=== PATIENT | female | born 1995 | race Caucasian/White ===

== ENCOUNTER 2018-06-28 00:33 | Emergency (ER) | payer BC ==
--- NOTE | 2018-06-28 02:10 | EDPHYS ---
Physician Documentation [facility] Name: Devi Porter Age: 22 yrs Sex: Female : 1995 Arrival Date: 06/28/2018 Time: 00:34 Bed 14 Private MD: Bird Green ED Physician Dameon Gonzales HPI: 06/28 01:16 This 22 yrs old Female presents to ER via Ambulatory with complaints of Chest jr8 Pain, Cough. 01:16 The patient or guardian reports cough, that is intermittent, described as mild, with no jr8 sputum. Onset: The symptoms/episode began/occurred gradually, 2 day(s) ago. Severity of symptoms: At their worst the symptoms were moderate, in the emergency department the symptoms are unchanged. Modifying factors: The symptoms are alleviated by nothing, the symptoms are aggravated by nothing. Associated signs and symptoms: Pertinent positives: chest pain, sore throat. The patient has not experienced similar symptoms in the past. The patient has not recently seen a physician. 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 - Social history:: Smoking status: Patient/guardian denies using tobacco. - Ebola Screening: : Patient denies exposure to infectious person Patient denies travel to an Ebola-affected area in the 21 days before illness onset. ROS: 01:16 Eyes: Negative for injury, pain, redness, and discharge, Neck: Negative for injury, jr8 pain, and swelling, Abdomen/GI: Negative for abdominal pain, nausea, vomiting, diarrhea, and constipation, Back: Negative for injury and pain, MS/Extremity: Negative for injury and deformity, Skin: Negative for injury, rash, and discoloration, Neuro: Negative for headache, weakness, numbness, tingling, and seizure. 01:16 ENT: Positive for sore throat, Negative for drainage from ear(s), ear pain, tinnitus, nasal discharge, rhinorrhea, sinus congestion, sinus pain, difficulty swallowing, difficulty handling secretions, hoarseness. 01:16 Cardiovascular: Positive for chest pain, Negative for edema, orthopnea, palpitations, paroxysmal nocturnal dyspnea. 01:16 Respiratory: Positive for cough, with no reported sputum, Negative for dyspnea on exertion, hemoptysis, shortness of breath, sputum production, wheezing. Exam: 02:09 Eyes: Pupils equal round and reactive to light, extra-ocular motions intact. Lids and jr8 lashes normal. Conjunctiva and sclera are non-icteric and not injected. Cornea within normal limits. Periorbital areas with no swelling, redness, or edema. ENT: Nares patent. No nasal discharge, no septal abnormalities noted. Tympanic membranes are normal and external auditory canals are clear. Oropharynx with no redness, swelling, or masses, exudates, or evidence of obstruction, uvula midline. Mucous membranes moist. Neck: Trachea midline, no thyromegaly or masses palpated, and no cervical lymphadenopathy. Supple, full range of motion without nuchal rigidity, or vertebral point tenderness. No Meningismus. Cardiovascular: Regular rate and rhythm with a normal S1 and S2. No gallops, murmurs, or rubs. Normal PMI, no JVD. No pulse deficits. Respiratory: Lungs have equal breath sounds bilaterally, clear to auscultation and percussion. No rales, rhonchi or wheezes noted. No increased work of breathing, no retractions or nasal flaring. Abdomen/GI: Soft, non-tender, with normal bowel sounds. No distension or tympany. No guarding or rebound. No evidence of tenderness throughout. Back: No spinal tenderness. No costovertebral tenderness. Full range of motion. Skin: Warm, dry with normal turgor. Normal color with no rashes, no lesions, and no evidence of cellulitis. MS/ Extremity: Pulses equal, no cyanosis. Neurovascular intact. Full, normal range of motion. Neuro: Awake and alert, GCS 15, oriented to person, place, time, and situation. Cranial nerves II-XII grossly intact. Motor strength 5/5 in all extremities. Sensory grossly intact. Cerebellar exam normal. Normal gait. Vital Signs: 01:02 BP 115 / 78; Pulse 91; Resp 18; Temp 98.7(O); Pulse Ox 100% on R/A; Weight 129.27 kg; aa1 Height 5 ft. 5 in. (165.10 cm); Pain 6/10; :44 BP 125 / 86; Pulse 83; Resp 18; Pulse Ox 98% on R/A; aa1 02:15 BP 128 / 70; Pulse 74; Resp 18; Temp 98(O); Pulse Ox 98% on R/A; Pain 0/10; aa1 01:02 Body Mass Index 47.43 (129.27 kg, 165.10 cm) 1 MDM: 00:43 Patient medically screened. 8 02:09 Data reviewed: vital signs, nurses notes, EKG, radiologic studies, plain films, and as jr8 a result, I will discharge patient. Data interpreted: Pulse oximetry: on room air is 98 %. Interpretation: normal. Counseling: I had a detailed discussion with the patient and/or guardian regarding: the historical points, exam findings, and any diagnostic results supporting the discharge/admit diagnosis, radiology results, the need for outpatient follow up, a family practitioner, to return to the emergency department if symptoms worsen or persist or if there are any questions or concerns that arise at home. 06/28 01:43 Order name: Urine Dipstick--Ancillary (enter results) [facility] 06/28 01:45 Order name: Urine --Ancillary (enter results) [facility] 06/28 01:13 Order name: EKG - Nurse/Tech; Complete Time: 01:42 [facility] 06/28 01:13 Order name: XRAY Chest Pa And Lat (2 Views) [facility] 06/28 01:13 Order name: Urine Test (obtain specimen); Complete Time: 01:42 [facility] 06/28 01:45 Order name: Urine --Ancillary [facility] 06/28 01:13 Order name: Urine Dipstick-Ancillary (obtain specimen); Complete Time: 01:42 [facility] Administered Medications: No medications were administered Disposition: 20:33 Co-signature as Attending Physician, Dameon Gonzales MD I agree with the assessment and wa plan of care. Disposition: 06/28/18 02:10 Discharged to Home. Impression: Acute upper respiratory infection, unspecified, Chest pain on breathing. - Condition is Stable. - Discharge Instructions: Upper Respiratory Infection, Adult. - Prescriptions for Prednisone 20 mg Oral Tablet - take 1 tablet by ORAL route once daily for 5 days; 5 tablet. Tessalon Perles 100 mg Oral Capsule - take 1 capsule by ORAL route every 8 hours As needed; 15 capsule. Guaifenesin AC 10- 100 mg/5 mL Oral Liquid - take 10 milliliter by ORAL route every 4 hours As needed; 240 milliliter. - Medication Reconciliation Form, Thank You Letter, Antibiotic Education, Prescription Opioid Use form. - Follow up: Bird Green MD; When: 5 - 6 days; Reason: Recheck today's complaints, Continuance of care, Re-evaluation by your physician. - Problem is new. - Symptoms have improved. Signatures: Dispatcher [employer] EDMS Marion Milligan RN RN aa1 Ponce Romero PA PA jr8 Dameon Gonzales MD MD wa Corrections: (The following items were deleted from the chart) 02:30 02:10 06/28/2018 02:10 Discharged to Home. Impression: Acute upper respiratory aa1 infection, unspecified; Chest pain on breathing. Condition is Stable. Forms are Medication Reconciliation Form, Thank You Letter, Antibiotic Education, Prescription Opioid Use. Follow up: Bird Green; When: 5 - 6 days; Reason: Recheck today's complaints, Continuance of care, Re-evaluation by your physician. Problem is new. Symptoms have improved. jr8
--- NOTE | 2018-06-28 02:10 | ER ---
Nurse's Notes [facility] Name: Devi Porter Age: 22 yrs Sex: Female : 1995 Arrival Date: 06/28/2018 Time: 00:34 Bed 14 Private MD: Bird Green Diagnosis: Acute upper respiratory infection, unspecified;Chest pain on breathing Presentation: 06/28 00:59 Presenting complaint: Patient states: dry cough x 2 days and began to have tightness in aa1 her chest this evening. Denies fever. Transition of care: patient was not received from another setting of care. Onset of symptoms was June 26, 2018. Risk Assessment: Do you want to hurt yourself or someone else? Patient reports no desire to harm self or others. Initial Sepsis Screen: Does the patient meet any 2 criteria? No. Patient's initial sepsis screen is negative. Does the patient have a suspected source of infection? No. Patient's initial sepsis screen is negative. Care prior to arrival: None. 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 - Social history:: Smoking status: Patient/guardian denies using tobacco. - Ebola Screening: : Patient denies exposure to infectious person Patient denies travel to an Ebola-affected area in the 21 days before illness onset. Screenin:04 Abuse screen: Denies threats or abuse. Denies injuries from another. Nutritional aa1 screening: No deficits noted. Tuberculosis screening: No symptoms or risk factors identified. Fall Risk None identified. Assessment: 01:04 Reassessment:. General: Appears in no apparent distress. comfortable, Behavior is calm, aa1 cooperative, appropriate for age. Pain: Complains of pain in chest Pain does not radiate. Pain currently is 6 out of 10 on a pain scale. Quality of pain is described as pressure, Is continuous. Neuro: Level of Consciousness is awake, alert, obeys commands, Oriented to person, place, time, situation, Moves all extremities. Full function Gait is steady, Speech is normal. Cardiovascular: Heart tones S1 S2 present Rhythm is regular. Respiratory: Reports cough that is dry, Airway is patent Respiratory effort is even, unlabored, Respiratory pattern is regular, symmetrical, Breath sounds are clear bilaterally. GI: No signs and/or symptoms were reported involving the gastrointestinal system. : No signs and/or symptoms were reported regarding the genitourinary system. EENT: No signs and/or symptoms were reported regarding the EENT system. Derm: Skin is intact, is healthy with good turgor, Skin is pink, warm \T\ dry. Musculoskeletal: Circulation, motion, and sensation intact. Capillary refill < 3 seconds. 01:44 Reassessment: Patient appears in no apparent distress at this time. Patient and/or aa1 family updated on plan of care and expected duration. Pain level reassessed. Patient is alert, oriented x 3, equal unlabored respirations, skin warm/dry/pink. Awaiting xray. 02:20 Reassessment: Patient and/or family updated on plan of care and expected duration. Pain aa1 level reassessed. Patient is alert, oriented x 3, equal unlabored respirations, skin warm/dry/pink. Discharge instructions given to patient, verbalized the understanding of instruction. Vital Signs: 01:02 BP 115 / 78; Pulse 91; Resp 18; Temp 98.7(O); Pulse Ox 100% on R/A; Weight 129.27 kg; aa1 Height 5 ft. 5 in. (165.10 cm); Pain 6/10; 01:44 BP 125 / 86; Pulse 83; Resp 18; Pulse Ox 98% on R/A; aa1 02:15 BP 128 / 70; Pulse 74; Resp 18; Temp 98(O); Pulse Ox 98% on R/A; Pain 0/10; aa1 01:02 Body Mass Index 47.43 (129.27 kg, 165.10 cm) aa1 ED Course: 00:34 Patient arrived in ED. ds1 00:34 Bird Green MD is Private Physician. ds1 00:43 Ponce Romero [facility]. jr8 00:43 Dameon Gonzales MD is Attending Physician. jr8 00:53 Mineral, Marion, RN is Primary Nurse. aa1 01:00 Triage completed. aa1 01:02 Arm band placed on right wrist. Patient placed in an exam room, on a stretcher. aa1 01:04 Patient has correct armband on for positive identification. Bed in low position. Call aa1 light in reach. Pulse ox on. NIBP on. 01:04 Patient maintains SpO2 saturation greater than 95% on room air. aa1 01:52 Patient moved to radiology via wheelchair. kw 01:52 X-ray completed. Patient tolerated procedure well. kw 01:52 Patient moved back from radiology. kw 01:53 XRAY Chest Pa And Lat (2 Views) In Process Unspecified. EDMS 02:10 Bird Green MD is Referral Physician. jr8 02:20 Patient did not have IV access during this emergency room visit. aa1 02:27 No provider procedures requiring assistance completed. aa1 Administered Medications: No medications were administered Outcome: 02:10 Discharge ordered by MD. jr8 02:27 Discharged to home ambulatory, with family. aa1 02:27 Condition: improved 02:27 Discharge instructions given to patient, family, Instructed on discharge instructions, follow up and referral plans. medication usage, Demonstrated understanding of instructions, follow-up care, medications, Prescriptions given X 3. 02:30 Patient left the ED. aa1 Signatures: Dispatcher [employer] EDIN Marion Milligan RN RN aa1 Elvira Vila ds1 Nancy Johnson Josh, PA PA jr8
[2018-06-28 02:42] VITALS: O2SAT 98
[2018-06-28 02:44] VITALS: BP 128/70; TEMP 98
[2018-06-28 03:15] LABS: Urine Blood NEGATIVE (NEG); Urine Glucose NEGATIVE (NEG); Urine Protein NEGATIVE (NEG)
--- NOTE | 2018-06-28 08:55 | RAD REPORT ---
EXAM DESCRIPTION: RAD - Chest Pa And Lat (2 Views) - 06/28/2018 1:57 am CLINICAL HISTORY: COUGH Chest pain. COMPARISON: No comparisons FINDINGS: Mild prominence of the interstitial markings noted which could indicate interstitial pneum onitis or reactive airway disease. No focal consolidation typical of bacterial pneumonia is seen. The heart is normal in size. No displaced fractures.
--- NOTE | 2018-06-28 14:48 | EKG ---
Test Date: 2018-06-28 Test Time: 01:22:52 Erp Consultant: ALEJANDRA MEASUREMENT RESULTS: Intervals: Rate: 80 ME: 164 QRSD: 80 QT: 378 QTc: 435 [place]: P: 19 ME: 164 QRS: 4 T: 19 INTERPRETIVE STATEMENTS: Normal sinus rhythm Normal ECG Compared to ECG 02/04/1999 20:03:00 No significant changes Electronically Signed On 06-28-18 14:45:21 CDT by Obdulio Mcbride
== END 2018-06-28 02:30 | disposition home or self-care (01) ==
LOC: ER 00:33
DX: J06.9 Acute upper respiratory infection, unspecified (principal); R07.1 Chest pain on breathing
CPT/HCPCS: 71046; 81003; 81025; 93005; 99284

== ENCOUNTER 2018-07-21 13:33 | Emergency (ER) | payer BC ==
--- NOTE | 2018-07-21 14:22 | EDPHYS ---
Physician Documentation [facility] Name: Devi Porter Age: 22 yrs Sex: Female : 1995 Arrival Date: 07/21/2018 Time: 13:36 Bed 12 Private MD: ED Physician Dameon Gonzales HPI: 07/21 13:47 This 22 yrs old Female presents to ER via Unassigned with complaints of Ear kav Pain. 14:14 The patient presents with a fullness. The complaints affect the right ear. Onset: The kav symptoms/episode began/occurred acutely, 2 day(s) ago. Modifying factors: The symptoms are alleviated by covering ear, the symptoms are aggravated by "...putting q-tips in ear". Associated signs and symptoms: The patient has no apparent associated signs or symptoms. Severity of symptoms: At their worst the symptoms were moderate just prior to arrival. The patient has not experienced similar symptoms in the past. The patient has not recently seen a physician. Patient reports that she also has a rash on her abdomen around periumbilical area.. Historical: - Allergies: 14:05 No Known Allergies; iw - Home Meds: 14:05 None [Active]; iw - PMHx: 14:05 None; iw - PSHx: 14:04 None; iw - Immunization history:: Adult Immunizations up to date. - Social history:: Smoking status: Patient/guardian denies using tobacco. - Ebola Screening: : Patient negative for fever greater than or equal to 101.5 degrees Fahrenheit, and additional compatible Ebola Virus Disease symptoms Patient denies exposure to infectious person Patient denies travel to an Ebola-affected area in the 21 days before illness onset No symptoms or risks identified at this time. - Family history:: not pertinent. - Hospitalizations: : No recent hospitalization is reported. ROS: 14:16 Constitutional: Negative for fever, chills, and weight loss, Eyes: Negative for injury, kav pain, redness, and discharge, Neck: Negative for injury, pain, and swelling, Cardiovascular: Negative for chest pain, palpitations, and edema, Respiratory: Negative for shortness of breath, cough, wheezing, and pleuritic chest pain, Abdomen/GI: Negative for abdominal pain, nausea, vomiting, diarrhea, and constipation, Back: Negative for injury and pain, : Negative for injury, bleeding, discharge, and swelling, MS/Extremity: Negative for injury and deformity, Neuro: Negative for headache, weakness, numbness, tingling, and seizure, Psych: Negative for depression, anxiety, suicide ideation, homicidal ideation, and hallucinations, Allergy/Immunology: Negative for hives, rash, and allergies, Endocrine: Negative for neck swelling, polydipsia, polyuria, polyphagia, and marked weight changes, Hematologic/Lymphatic: Negative for swollen nodes, abnormal bleeding, and unusual bruising. 14:16 ENT: Positive for ear pain, of the right ear, Negative for sinus congestion. 14:16 Skin: Positive for rash. Exam: 14:16 Constitutional: This is a well developed, well nourished patient who is awake, alert, kav and in no acute distress. Head/Face: Normocephalic, atraumatic. Eyes: Pupils equal round and reactive to light, extra-ocular motions intact. Lids and lashes normal. Conjunctiva and sclera are non-icteric and not injected. Cornea within normal limits. Periorbital areas with no swelling, redness, or edema. Neck: Trachea midline, no thyromegaly or masses palpated, and no cervical lymphadenopathy. Supple, full range of motion without nuchal rigidity, or vertebral point tenderness. No Meningismus. Chest/axilla: Normal chest wall appearance and motion. Nontender with no deformity. No lesions are appreciated. Cardiovascular: Regular rate and rhythm with a normal S1 and S2. No gallops, murmurs, or rubs. Normal PMI, no JVD. No pulse deficits. Respiratory: Lungs have equal breath sounds bilaterally, clear to auscultation and percussion. No rales, rhonchi or wheezes noted. No increased work of breathing, no retractions or nasal flaring. Abdomen/GI: Soft, non-tender, with normal bowel sounds. No distension or tympany. No guarding or rebound. No evidence of tenderness throughout. Back: No spinal tenderness. No costovertebral tenderness. Full range of motion. MS/ Extremity: Pulses equal, no cyanosis. Neurovascular intact. Full, normal range of motion. Neuro: Awake and alert, GCS 15, oriented to person, place, time, and situation. Cranial nerves II-XII grossly intact. Motor strength 5/5 in all extremities. Sensory grossly intact. Cerebellar exam normal. Normal gait. Psych: Awake, alert, with orientation to person, place and time. Behavior, mood, and affect are within normal limits. 14:16 ENT: External ear(s): are unremarkable, no acute changes, Ear canal(s): TM's: erythema, that is moderate, on the right, Examination of the other ear shows no obvious abnormality, Nose: is normal, no acute changes, Examination of the other nostril shows no obvious abnormality. 14:16 Skin: ringworm, on the umbilical area. Vital Signs: 14:20 BP 134 / 85; Pulse 74; Resp 16; Temp 98.2; Pulse Ox 98% on R/A; Pain 5/10; iw MDM: 13:47 Medical screening is not applicable. kav 14:16 Data reviewed: vital signs, nurses notes. kav Administered Medications: No medications were administered Disposition: 07/21/18 14:22 Discharged to Home. Impression: Left Ear Pain, Rash and other nonspecific skin eruption. - Condition is Stable. - Discharge Instructions: Earache, Adult, Rash, Body Ringworm. - Prescriptions for Ciprodex 0.3- 0.1 % Otic Drops, Suspension - instill 4 drop by OTIC route every 12 hours for 7 days , for ears ONLY; 1 Container. - Medication Reconciliation Form, Thank You Letter, Antibiotic Education, Prescription Opioid Use form. - Follow up: Private Physician; When: 2 - 3 days; Reason: Recheck today's complaints, Continuance of care, Re-evaluation by your physician. - Problem is new. - Symptoms have improved. Addendum: 07/23/2018 08:07 Co-signature as Attending Physician, Dameon Gonzales MD I agree with the assessment and w a plan of care. Signatures: Reta Pearson, SIGNS CLEANER SIGNS CLEANER Evi Harrison RN RN iw Appiah, William, MD MD fl Corrections: (The following items were deleted from the chart) 07/21 14:40 14:22 07/21/2018 14:22 Discharged to Home. Impression: Left Ear Pain; Rash and other iw nonspecific skin eruption. Condition is Stable. Forms are Medication Reconciliation Form, Thank You Letter, Antibiotic Education, Prescription Opioid Use. Follow up: Private Physician; When: 2 - 3 days; Reason: Recheck today's complaints, Continuance of care, Re-evaluation by your physician. Problem is new. Symptoms have improved. vivek
--- NOTE | 2018-07-21 14:22 | ER ---
Nurse's Notes [facility] Name: Devi Porter Age: 22 yrs Sex: Female : 1995 Arrival Date: 07/21/2018 Time: 13:36 Bed 12 Private MD: Diagnosis: Left Ear Pain;Rash and other nonspecific skin eruption Presentation: 07/21 14:04 Presenting complaint: Patient states: Well a couple days ago my left ear was bothering iw me, now my right ear is hurting too, i also have a sore throat. Transition of care: patient was not received from another setting of care. Onset of symptoms was July 21, 2018. Risk Assessment: Do you want to hurt yourself or someone else? Patient reports no desire to harm self or others. Initial Sepsis Screen: Does the patient meet any 2 criteria? No. Patient's initial sepsis screen is negative. Does the patient have a suspected source of infection? No. Patient's initial sepsis screen is negative. Care prior to arrival: None. 14:04 Acuity: NATHAN 5 iw 14:04 Method Of Arrival: Ambulatory iw Triage Assessment: 14:30 General: Appears in no apparent distress. iw 14:30 General: Behavior is calm, cooperative. iw Historical: - Allergies: 14:05 No Known Allergies; iw - Home Meds: 14:05 None [Active]; iw - PMHx: 14:05 None; iw - PSHx: 14:04 None; iw - Immunization history:: Adult Immunizations up to date. - Social history:: Smoking status: Patient/guardian denies using tobacco. - Ebola Screening: : Patient negative for fever greater than or equal to 101.5 degrees Fahrenheit, and additional compatible Ebola Virus Disease symptoms Patient denies exposure to infectious person Patient denies travel to an Ebola-affected area in the 21 days before illness onset No symptoms or risks identified at this time. - Family history:: not pertinent. - Hospitalizations: : No recent hospitalization is reported. Screenin:35 Abuse screen: Denies threats or abuse. Denies injuries from another. Nutritional iw screening: No deficits noted. Tuberculosis screening: No symptoms or risk factors identified. Fall Risk None identified. Assessment: 14:30 General: Appears in no apparent distress. Behavior is calm, cooperative. Pain: iw Complains of pain in abdomen and umbilical area and right ear. Neuro: Level of Consciousness is awake, alert, obeys commands, Oriented to person, place, time, situation, Moves all extremities. Full function. Cardiovascular: Patient's skin is warm and dry. Respiratory: Respiratory effort is even, unlabored, Respiratory pattern is regular, symmetrical. EENT: Reports pain in right ear and left ear. Derm: Skin is intact. Musculoskeletal: Range of motion: intact in all extremities. Vital Signs: 14:20 BP 134 / 85; Pulse 74; Resp 16; Temp 98.2; Pulse Ox 98% on R/A; Pain 5/10; iw ED Course: 13:36 Patient arrived in ED. rg4 13:46 [facility] Pearson [facility]NP [facility]. kav 13:46 Dameon Gonzales MD is Attending Physician. kav 14:03 Evi Merritt, RN is Primary Nurse. iw 14:04 Triage completed. iw 14:05 Arm band placed on. iw 14:30 Patient has correct armband on for positive identification. iw 14:30 No provider procedures requiring assistance completed. Patient did not have IV access iw during this emergency room visit. Administered Medications: No medications were administered Outcome: 14:22 Discharge ordered by . kav 14:39 Discharged to home ambulatory, with family. iw 14:39 Condition: good 14:39 Discharge instructions given to patient, family, Instructed on discharge instructions, follow up and referral plans. medication usage, Demonstrated understanding of instructions, follow-up care, medications, Prescriptions given X 1. 14:40 Patient left the ED. iw Signatures: Reta Pearson FNP FNP kav Williams, Irene, RN Linda Padilla rg4
[2018-07-21 14:44] VITALS: BP 134/85; TEMP 98.2; O2SAT 98
== END 2018-07-21 14:40 | disposition home or self-care (01) ==
LOC: ER 13:33
DX: R21 Rash and other nonspecific skin eruption (principal)
CPT/HCPCS: 99282

== ENCOUNTER 2019-08-07 07:14 | Emergency (ER) | payer BC ==
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
--- OUTSIDE RECORDS SUMMARY | 2019-08-07 07:17 | XMS REPORT | Summary of Care ---
:1995 Author Organization [facility] Address [address] [place] [address] Care Team Providers Name Role Phone Sierra Edmond [facility] Primary Care Provider Reason for Visit Reason Comments NEXPLANON Insert Encounter Details Date Type Department Care Team Description 07/11/2019 Office Visit [facility]- Sierra Edmond, Nexplanon in place (Primary Dx); [facility] of family member [address] [facility] [address] [place] [address] [phone] Allergies No Known Allergiesdocumented as of this [...] Morbid obesity 06/19/2013 Overview: ICD10 Diagnosis Term President [employer] Utility documented as of this encounter (statuses [...] in this encounter Progress Notes Sierra Edmond, PRISON GUARD - 07/11/2019 8:15 AM CDT Chief complaint: [...] file Gets together: Not on file Attends zoroastrianism service: Not on file Active member of [...] OB Satellites Sierra Edmond FNP [address] [place] [address] [phone] Health Maintenance Due Date Last Done Comments [...] Effective Dates Phone Address Type / Group [facility] [id number] 2018-Tiffany [phone] [address] PPO/POS [place] - OUT OF t 7 [id number] [place] [address] documented as of this encounter Advance Directives Name Relationship Healthcare Agent Relationship Communication Katrina Porter Grandparent Primary healthcare agent
--- OUTSIDE RECORDS SUMMARY | 2019-08-07 07:17 | XMS REPORT | Summary of Care ---
:1995 Author Organization [facility] Address [address] [place] [address] Care Team Providers Name Role Phone Mariann Rubin 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 documented as of this encounter (statuses [...] of this encounter Last Filed Vital Signs Not on filedocumented in this encounter Plan of Treatment Date Type Specialty Care Team Description 07/11/2019 Office Visit [facility]ell[facility] Sierra Edmond, VUL[employer] CREWMEMBER [address] [place], [place] [id number] Health Maintenance Due Date Last Done Comments [...] this topic documented as of this encounter Procedures Procedure Name Priority Date/Time Associated Diagnosis Comments ASSIGNMENT OF BENEFITS Routine 07/11/2019 8:00 AM CDT ASSIGNMENT OF BENEFITS Routine 07/11/2019 8:00 AM CDT documented in this encounter Results Not on filedocumented in this encounter Insurance Payer Benefit Plan Subscriber ID Effective Dates Phone Address Type / Group [facility] [id number] 2018-Tiffany [phone] [address] PPO/POS [place] - OUT OF 7 [id number] [place] [address] documented as of this encounter Advance Directives Name Relationship Healthcare Agent Relationship Communication Katrina Porter Grandparent Primary healthcare agent
--- OUTSIDE RECORDS SUMMARY | 2019-08-07 07:17 | XMS REPORT ---
:1995 [facility] Address [address] [place] [address] Care Team Providers Name Role Phone Unavailable Unavailable Unavailable Problems This patient has no known problems. Allergies, Adverse Reactions, Alerts This patient has no known allergies or adverse reactions. Medications This patient has no known medications.
--- NOTE | 2019-08-07 08:13 | EDPHYS ---
Physician Documentation [facility] Name: Devi Porter Age: 23 yrs Sex: Female : 1995 Arrival Date: 08/07/2019 Time: 07:19 Bed 18 Private MD: Bird Green ED Physician Jama Cruz HPI: 08/07 07:28 This 23 yrs old Female presents to ER via Unassigned with complaints of rn Vaginal Pain. 07:28 The patient presents with perineal itching. Onset: The symptoms/episode began/occurred rn 2 day(s) ago. Modifying factors: The symptoms are alleviated by nothing, the symptoms are aggravated by movement, pressure, urinating. Severity of symptoms: At their worst the symptoms were moderate, in the emergency department the symptoms are unchanged. The patient has not experienced similar symptoms in the past. The patient has not recently seen a physician. Reports vaginal pain and itching, began 2 days ago, no fever, no trauma, reports began with itching and now has worsened to hurt when urinating and walking/sitting. . Historical: - Allergies: 07:35 No Known Allergies; ss - Home Meds: 07:35 None [Active]; ss - PMHx: 07:35 None; ss - PSHx: 07:35 None; ss - Immunization history:: Adult Immunizations up to date. - Social history:: Smoking status: Patient/guardian denies using tobacco. - Family history:: not pertinent. - Ebola Screening: : Patient denies exposure to infectious person Patient denies travel to an Ebola-affected area in the 21 days before illness onset. - Hospitalizations: : No recent hospitalization is reported. ROS: 07:31 Constitutional: Negative for fever, chills, and weight loss, Eyes: Negative for injury, rn pain, redness, and discharge, Cardiovascular: Negative for chest pain, palpitations, and edema, Respiratory: Negative for shortness of breath, cough, wheezing, and pleuritic chest pain, Abdomen/GI: Negative for abdominal pain, nausea, vomiting, diarrhea, and constipation, : Negative for injury, swelling MS/Extremity: Negative for injury and deformity, Skin: Negative for injury, rash, and discoloration, Neuro: Negative for headache, weakness, numbness, tingling, and seizure. Exam: 07:31 Constitutional: This is a well developed, well nourished patient who is awake, alert, rn and in no acute distress. Abdomen/GI: soft, non-tender, no rebound Pelvic Exam: + inflamed and erythematous vaginal mucosa and labia without thick discharge, no foul odor. NO signs of trauma. No abscess or fluctuance. Skin: Warm, dry with normal turgor. Normal color with no rashes, no lesions, and no evidence of cellulitis. Vital Signs: 07:35 BP 124 / 89; Pulse 80; Resp 16; Temp 98.3(TE); Pulse Ox 98% on R/A; Weight 131.54 kg; ss Height 5 ft. 5 in. (165.10 cm); Pain 8/10; 07:35 Body Mass Index 48.26 (131.54 kg, 165.10 cm) ss MDM: 07:20 Patient medically screened. rn 08:11 Differential diagnosis: urinary tract infection, vaginosis, vaginitis. Data reviewed: rn vital signs, nurses notes. 08:12 Counseling: I had a detailed discussion with the patient and/or guardian regarding: the rn historical points, exam findings, and any diagnostic results supporting the discharge/admit diagnosis, lab results, the need for outpatient follow up, to return to the emergency department if symptoms worsen or persist or if there are any questions or concerns that arise at home. Special discussion: I discussed with the patient/guardian in detail that at this point there is no indication for admission to the hospital. It is understood, however, that if the symptoms persist or worsen the patient needs to return immediately for re-evaluation. 08/07 07:50 Order name: Urine Dipstick--Ancillary (enter results); Complete Time: 08:23 bd 08/07 07:50 Order name: Urine --Ancillary (enter results); Complete Time: 08:23 bd 08/07 07:31 Order name: Urine Dipstick-Ancillary (obtain specimen); Complete Time: 07:49 rn 08/07 07:31 Order name: Urine Test (obtain specimen); Complete Time: 07:49 rn Administered Medications: 07:45 CANCELLED (will wait on preg test): DiFLUcan 150 mg PO once rn 08:28 Drug: DiFLUcan 200 mg Route: PO; ss 08:28 Follow up: Response: Medication administered at discharge. ss Disposition: 08/07/19 08:12 Discharged to Home. Impression: Vaginitis, vulvitis and vulvovaginitis in diseases classified elsewhere. - Condition is Stable. - Discharge Instructions: Vaginitis. - Prescriptions for Flagyl 500 mg Oral Tablet - take 1 tablet by ORAL route every 12 hours for 7 days; 14 tablet. Miconazole 7 2 % Vaginal Cream - insert 1 applicatorful by VAGINAL route At bedtime for 7 days; 45 gram. - Medication Reconciliation Form, Thank You Letter, Antibiotic Education, Prescription Opioid Use form. - Follow up: Private Physician; When: 2 - 3 days; Reason: Recheck today's complaints, Re-evaluation by your physician. - Problem is new. - Symptoms are unchanged. Signatures: Dispatcher [employer] EDMS Jama Cruz MD MD rn Smirch, Shelby, RN RN ss Corrections: (The following items were deleted from the chart) 07:41 07:31 Constitutional: This is a well developed, well nourished patient who is awake, rn alert, and in no acute distress. Abdomen/GI: soft, non-tender, no rebound Pelvic Exam: + inflamed and erythematous vaginal mucosa without thick discharge, no foul odor. NO signs of trauma. Skin: Warm, dry with normal turgor. Normal color with no rashes, no lesions, and no evidence of cellulitis. rn 07:45 07:45 DiFLUcan 150 mg PO once ordered. awais rn 08:28 08:12 08/07/2019 08:12 Discharged to Home. Impression: Vaginitis, vulvitis and ss vulvovaginitis in diseases classified elsewhere. Condition is Stable. Discharge Instructions: Vaginitis. Prescriptions for Flagyl 500 mg Oral Tablet - take 1 tablet by ORAL route every 12 hours for 7 days; 14 tablet, Miconazole 7 2 % Vaginal Cream - insert 1 applicatorful by VAGINAL route At bedtime for 7 days; 45 gram. and Forms are Medication Reconciliation Form, Thank You Letter, Antibiotic Education, Prescription Opioid Use. Follow up: Private Physician; When: 2 - 3 days; Reason: Recheck today's complaints, Re-evaluation by your physician. Problem is new. Symptoms are unchanged. rn
--- NOTE | 2019-08-07 08:13 | ER ---
Nurse's Notes [facility] Name: Devi Porter Age: 23 yrs Sex: Female : 1995 Arrival Date: 08/07/2019 Time: 07:19 Bed 18 Private MD: Bird Green Diagnosis: Vaginitis, vulvitis and vulvovaginitis in diseases classified elsewhere Presentation: 08/07 07:19 Presenting complaint: Patient states: vaginal itching x 3 days. Patient is concerned ss because she believes she may have scratched herself because it conde when she voids x 1 day. Transition of care: patient was not received from another setting of care. Onset of symptoms was August 04, 2019. Risk Assessment: Do you want to hurt yourself or someone else? Patient reports no desire to harm self or others. Initial Sepsis Screen: Does the patient meet any 2 criteria? No. Patient's initial sepsis screen is negative. Does the patient have a suspected source of infection? No. Patient's initial sepsis screen is negative. Care prior to arrival: None. 07:19 Method Of Arrival: Ambulatory ss 07:19 Acuity: NATHAN 4 ss Historical: - Allergies: 07:35 No Known Allergies; ss - Home Meds: 07:35 None [Active]; ss - PMHx: 07:35 None; ss - PSHx: 07:35 None; ss - Immunization history:: Adult Immunizations up to date. - Social history:: Smoking status: Patient/guardian denies using tobacco. - Family history:: not pertinent. - Ebola Screening: : Patient denies exposure to infectious person Patient denies travel to an Ebola-affected area in the 21 days before illness onset. - Hospitalizations: : No recent hospitalization is reported. Screenin:40 Abuse screen: Denies threats or abuse. Denies injuries from another. Nutritional ss screening: No deficits noted. Tuberculosis screening: Never had TB. Fall Risk None identified. Assessment: 07:19 General: Appears in no apparent distress. comfortable, Behavior is calm, cooperative, ss Denies fever, feeling ill, fatigue, chills. Pain: Complains of pain in vaginal area Pain currently is 8 out of 10 on a pain scale. Quality of pain is described as itching, burning, tender Pain began 3 days ago Is continuous. Neuro: Level of Consciousness is awake, alert, obeys commands, Oriented to person, place, time, situation. Cardiovascular: Capillary refill < 3 seconds is brisk in bilateral fingers. Respiratory: Airway is patent Respiratory effort is even, unlabored, Respiratory pattern is regular, symmetrical. GI: Patient currently denies abdominal pain, diarrhea, nausea, vomiting. : Reports burning with urination, vaginal itching, Denies cramping discharge, incontinence. EENT: Oral mucosa is moist. Derm: Skin is pink, warm \T\ dry. normal. Musculoskeletal: Circulation, motion, and sensation intact. Range of motion: intact in all extremities, Swelling absent. 07:40 Reassessment: Chaperoned Dr. Cruz with external vaginal exam with family member at bedside upon patient request. Patient tolerated well. Vital Signs: 07:35 BP 124 / 89; Pulse 80; Resp 16; Temp 98.3(TE); Pulse Ox 98% on R/A; Weight 131.54 kg; ss Height 5 ft. 5 in. (165.10 cm); Pain 8/10; 07:35 Body Mass Index 48.26 (131.54 kg, 165.10 cm) ED Course: 07:19 Patient arrived in ED. mr 07:20 Bird Green MD is Private Physician. mr 07:20 Jama Cruz MD is Attending Physician. rn 07:21 Kody Rousseau, OBED is Primary Nurse. bp 07:34 Triage completed. ss 07:35 Arm band placed on right wrist. ss 07:40 Patient has correct armband on for positive identification. Bed in low position. Call light in reach. 07:40 Assist provider with pelvic exam: Patient tolerated well. Thermoregulation: warm ss blanket given to patient. 07:43 Mare Luis, RN is Primary Nurse. ss 08:28 Patient did not have IV access during this emergency room visit. ss Administered Medications: 07:45 CANCELLED (will wait on preg test): DiFLUcan 150 mg PO once rn 08:28 Drug: DiFLUcan 200 mg Route: PO; ss 08:28 Follow up: Response: Medication administered at discharge. Outcome: 08:12 Discharge ordered by MD. rn 08:28 Discharged to home ambulatory, with family. ss 08:28 Condition: good 08:28 Discharge instructions given to patient, family, Instructed on discharge instructions, follow up and referral plans. medication usage, Demonstrated understanding of instructions, follow-up care, medications, Prescriptions given X 2. 08:28 Patient left the ED. Signatures: Nury Díaz Roman, MD MD rn Smirch, Shelby, RN RN ss Kody Rousseau RN RN bp
[2019-08-07 08:20] LABS: Urine Blood TRACE (NEG); Urine Glucose NEGATIVE (NEG); Urine Protein NEGATIVE (NEG); Urine Specific Gravity >1.030 (1.005-1.030)
[2019-08-07] MEDS ORDERED: FLUCONAZOLE 100 MG TAB ONE (08:26)
[2019-08-07 15:06] VITALS: BP 124/89; TEMP 98.3; O2SAT 98
== END 2019-08-07 08:28 | disposition home or self-care (01) ==
LOC: ER 07:14
DX: R10.2 Pelvic and perineal pain (principal); N77.1 Vaginitis, vulvitis and vulvovaginitis in diseases classified elsewhere
CPT/HCPCS: 81003; 81025; 99283

== ENCOUNTER 2019-11-22 22:14 | Emergency (ER) | payer BC ==
--- OUTSIDE RECORDS SUMMARY | 2019-11-22 22:16 | XMS REPORT ---
:1995 [facility] Address [address] [place] [address] Dr. Souza [address] [place] [id number] Care Team Providers Name Role Phone Unavailable Unavailable Unavailable Problems This patient has no known problems. Allergies, Adverse Reactions, Alerts This patient has no known allergies or adverse reactions. Medications This patient has no known medications.
--- NOTE | 2019-11-23 00:35 | ER ---
Nurse's Notes [facility] Name: Devi Porter Age: 23 yrs Sex: Female : 1995 Arrival Date: 11/22/2019 Time: 22:16 Bed 5 Private MD: Diagnosis: Acute bronchitis, unspecified Presentation: 11/22 23:03 Presenting complaint: Patient states: Sore throat and painful cough for approx 2 days. tl1 Transition of care: patient was not received from another setting of care. Onset of symptoms was November 20, 2019. Risk Assessment: Do you want to hurt yourself or someone else? Patient reports no desire to harm self or others. Initial Sepsis Screen: Does the patient meet any 2 criteria? No. Patient's initial sepsis screen is negative. Does the patient have a suspected source of infection? No. Patient's initial sepsis screen is negative. Care prior to arrival: None. 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 - Social history:: Smoking status: Patient/guardian denies using tobacco, never smoked, Patient/guardian denies using alcohol, street drugs. - Ebola Screening: : Patient negative for fever greater than or equal to 101.5 degrees Fahrenheit, and additional compatible Ebola Virus Disease symptoms Patient denies exposure to infectious person Patient denies travel to an Ebola-affected area in the 21 days before illness onset. Screenin:38 Abuse screen: Denies threats or abuse. Nutritional screening: On. Tuberculosis jb4 screening: No symptoms or risk factors identified. Fall Risk None identified. Assessment: 23:38 General: Appears in no apparent distress. comfortable, Behavior is calm, cooperative, jb4 appropriate for age. Pain: Complains of pain in chest, throat Pain does not radiate. Pain currently is 8 out of 10 on a pain scale. Quality of pain is described as. Neuro: Level of Consciousness is awake, alert, obeys commands, Oriented to person, place, time, situation. Cardiovascular: Patient's skin is warm and dry. Respiratory: Airway is patent Respiratory effort is even, unlabored, Respiratory pattern is regular, symmetrical. GI: No signs and/or symptoms were reported involving the gastrointestinal system. : No signs and/or symptoms were reported regarding the genitourinary system. EENT: Throat is clear is reddened. Derm: Skin is intact, Skin is pink, warm \T\ dry. Musculoskeletal: Circulation, motion, and sensation intact. Range of motion:. 11/23 01:27 Reassessment: Patient appears in no apparent distress at this time. Patient and/or jb4 family updated on plan of care and expected duration. Pain level reassessed. Patient is alert, oriented x 3, equal unlabored respirations, skin warm/dry/pink. Vital Signs: 11/22 23:06 BP 102 / 79; Pulse 94; Resp 17; Temp 98.1; Pulse Ox 99% ; Weight 136.08 kg; Height 5 tl1 ft. 5 in. (165.10 cm); Pain 8/10; 11/23 01:27 BP 129 / 83; Pulse 81; Resp 16; Pulse Ox 99% on R/A; jb4 11/22 23:06 Body Mass Index 49.92 (136.08 kg, 165.10 cm) tl1 ED Course: 11/22 22:16 Patient arrived in ED. as 22:17 Rosalia Mckoy F[facility]-C is [facility]. snw 22:17 Tom Casey MD is Attending Physician. snw 23:04 Triage completed. tl1 23:07 Arm band placed on right wrist. tl1 23:21 Héctor Oakley, OBED is Primary Nurse. jb4 23:38 Patient has correct armband on for positive identification. Bed in low position. Call jb4 light in reach. Side rails up X 1. Pulse ox on. NIBP on. 11/23 01:27 No provider procedures requiring assistance completed. Patient did not have IV access jb4 during this emergency room visit. Administered Medications: : Drug: predniSONE 20 mg Route: PO; jb4 : Follow up: Response: Medication administered at discharge. jb4 : Drug: Pepcid 20 mg Route: PO; jb4 :26 Follow up: Response: Medication administered at discharge. jb4 Outcome: 00:20 Discharge ordered by . aric 01:27 Discharged to home ambulatory, with family. jb4 01:27 Condition: stable 01:27 Discharge instructions given to patient, family, Instructed on discharge instructions, follow up and referral plans. medication usage, Demonstrated understanding of instructions, follow-up care, medications, Prescriptions given X 2. 01:28 Patient left the ED. jb4 Signatures: Rosalia Mckoy, FIELD CROP FARMING SUPERVISOR-C FIELD CROP FARMING SUPERVISOR-Jerrica Cortes Tonya, RN RN tl1 Héctor Oakley, RN RN jb4
--- NOTE | 2019-11-23 00:37 | EDPHYS ---
Physician Documentation [facility] Name: Devi Porter Age: 23 yrs Sex: Female : 1995 Arrival Date: 11/22/2019 Time: 22:16 Bed 5 Private MD: ED Physician Tom Casey HPI: 11/23 00:24 This 23 yrs old Female presents to ER via Ambulatory with complaints of Sore snw Throat, Cough. 00:24 The patient presents with sore throat. The patient describes throat pain as raw. Onset: snw The symptoms/episode began/occurred suddenly, 2 day(s) ago, and became persistent. Severity of symptoms: At their worst the symptoms were moderate. Associated signs and symptoms: Pertinent positives: cough. It is unknown whether or not the patient has had similar symptoms in the past. It is unknown whether or not the patient has recently seen a physician. 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 - Social history:: Smoking status: Patient/guardian denies using tobacco, never smoked, Patient/guardian denies using alcohol, street drugs. - Ebola Screening: : Patient negative for fever greater than or equal to 101.5 degrees Fahrenheit, and additional compatible Ebola Virus Disease symptoms Patient denies exposure to infectious person Patient denies travel to an Ebola-affected area in the 21 days before illness onset. ROS: 11/23 00:23 Constitutional: Negative for fever, chills, and weight loss, Eyes: Negative for injury, snw pain, redness, and discharge. Neck: Negative for injury, pain, and swelling, Cardiovascular: Negative for chest pain, palpitations, and edema, Abdomen/GI: Negative for abdominal pain, nausea, vomiting, diarrhea, and constipation, Back: Negative for injury and pain, : Negative for injury, bleeding, discharge, and swelling, MS/Extremity: Negative for injury and deformity, Skin: Negative for injury, rash, and discoloration, Neuro: Negative for headache, weakness, numbness, tingling, and seizure. ENT: Positive for sore throat. Respiratory: Positive for cough. Exam: 11/22 23:49 Constitutional: This is a well developed, well nourished patient who is awake, alert, snw and in no acute distress. Head/Face: Normocephalic, atraumatic. Eyes: Pupils equal round and reactive to light, extra-ocular motions intact. Lids and lashes normal. Conjunctiva and sclera are non-icteric and not injected. Cornea within normal limits. Periorbital areas with no swelling, redness, or edema. Neck: Trachea midline, no thyromegaly or masses palpated, and no cervical lymphadenopathy. Supple, full range of motion without nuchal rigidity, or vertebral point tenderness. No Meningismus. Chest/axilla: Normal chest wall appearance and motion. Nontender with no deformity. No lesions are appreciated. Cardiovascular: Regular rate and rhythm with a normal S1 and S2. No gallops, murmurs, or rubs. Normal PMI, no JVD. No pulse deficits. Abdomen/GI: Soft, non-tender, with normal bowel sounds. No distension or tympany. No guarding or rebound. No evidence of tenderness throughout. Back: No spinal tenderness. No costovertebral tenderness. Full range of motion. Skin: Warm, dry with normal turgor. Normal color with no rashes, no lesions, and no evidence of cellulitis. MS/ Extremity: Pulses equal, no cyanosis. Neurovascular intact. Full, normal range of motion. Neuro: Awake and alert, GCS 15, oriented to person, place, time, and situation. Cranial nerves II-XII grossly intact. Motor strength 5/5 in all extremities. Sensory grossly intact. Cerebellar exam normal. Normal gait. Psych: Awake, alert, with orientation to person, place and time. Behavior, mood, and affect are within normal limits. ENT: Ear canal(s): are normal, TM's: are normal, Nose: is normal, Posterior pharynx: erythema, that is mild. Respiratory: the patient does not display signs of respiratory distress, Respirations: shallow respirations, that is mild, Breath sounds: are clear throughout, no rales, rhonchi, no stridor, no wheezing. Vital Signs: 23:06 BP 102 / 79; Pulse 94; Resp 17; Temp 98.1; Pulse Ox 99% ; Weight 136.08 kg; Height 5 tl1 ft. 5 in. (165.10 cm); Pain 8/10; 11/23 01:27 BP 129 / 83; Pulse 81; Resp 16; Pulse Ox 99% on R/A; jb4 11/22 23:06 Body Mass Index 49.92 (136.08 kg, 165.10 cm) tl1 MDM: 11/22 23:21 Patient medically screened. pauline 11/23 00:21 Data reviewed: vital signs, nurses notes. Data interpreted: Pulse oximetry: on room air snw is 99 %. Interpretation: normal. Counseling: I had a detailed discussion with the patient and/or guardian regarding: the historical points, exam findings, and any diagnostic results supporting the discharge/admit diagnosis, lab results, the need for outpatient follow up, to return to the emergency department if symptoms worsen or persist or if there are any questions or concerns that arise at home. Special discussion: Based on the history and exam findings, there is no indication for further emergent testing or inpatient evaluation. I discussed with the patient/guardian the need to see the primary care provider for further evaluation of the symptoms. 11/22 22:19 Order name: Flu; Complete Time: 00:20 snw 11/22 22:19 Order name: Strep; Complete Time: 00:02 snw 11/23 00:00 Order name: Throat Culture EDMS Administered Medications: : Drug: predniSONE 20 mg Route: PO; Follow up: Response: Medication administered at discharge. Drug: Pepcid 20 mg Route: PO; Follow up: Response: Medication administered at discharge. [facility] Disposition: 07:54 Co-signature as Attending Physician, Tom Casey MD I agree with the assessment and [facility] plan of care. Disposition: 11/23/19 00:20 Discharged to Home. Impression: Acute bronchitis, unspecified. - Condition is Stable. - Discharge Instructions: Acute Bronchitis, Adult, Sore Throat. - Prescriptions for Tessalon Perles 100 mg Oral Capsule - take 1 capsule by ORAL route every 8 hours As needed; 15 capsule. Prednisone 20 mg Oral Tablet - take 2 tablet by ORAL route once daily for 5 days; 10 tablet. - Work release form, Medication Reconciliation Form, Thank You Letter, Antibiotic Education, Prescription Opioid Use form. - Follow up: Private Physician; When: 2 - 3 days; Reason: Recheck today's complaints, Continuance of care, Re-evaluation by your physician. Follow up: Emergency Department; When: As needed; Reason: Worsening of condition. Signatures: Dispatcher [employer] EDMS Tom Casey, Rosalia Dockery MD, cha, TASSEL MAKING MACHINE OPERATOR-C TASSEL MAKING MACHINE OPERATOR-Csnw Leila Estrella, RN RN tl1 Héctor Oakley RN RN jb4 Corrections: (The following items were deleted from the chart) 01:28 00:20 11/23/2019 00:20 Discharged to Home. Impression: Acute bronchitis, unspecified. jb4 Condition is Stable. Forms are Medication Reconciliation Form, Thank You Letter, Antibiotic Education, Prescription Opioid Use. Follow up: Private Physician; When: 2 - 3 days; Reason: Recheck today's complaints, Continuance of care, Re-evaluation by your physician. Follow up: Emergency Department; When: As needed; Reason: Worsening of condition. snw
[2019-11-23] MEDS ORDERED: predniSONE 20 MG TAB ONE (01:21)
[2019-11-23] MEDS ORDERED: FAMOTIDINE 20 MG TAB ONE (01:22)
[2019-11-23 02:56] VITALS: BP 129/83; O2SAT 99
[2019-11-23 02:57] VITALS: TEMP 98.1
== END 2019-11-23 01:28 | disposition home or self-care (01) ==
LOC: ER 22:14
DX: J20.9 Acute bronchitis, unspecified (principal)
CPT/HCPCS: 87070; 87081; 87804; 99283; J7512

== ENCOUNTER 2020-02-25 06:44 | Emergency (ER) | payer BC ==
--- OUTSIDE RECORDS SUMMARY | 2020-02-25 06:46 | XMS REPORT ---
:1995 [facility] Address [address] [place] [address] [address] [place] [address] Care Team Providers Name Role Phone Unavailable Unavailable Unavailable Problems This patient has no known problems. Allergies, Adverse Reactions, Alerts This patient has no known allergies or adverse reactions. Medications This patient has no known medications.
[2020-02-25 07:50] LABS: Absolute Lymphocytes (CBC) 1.8 K/uL (0.7-4.9); Basophils % 0.5 % (0-1.3); Hematocrit 38.4 % (36.0-45.0); Lymphocytes % 25.2 % (15.3-44.8); MPV 8.7 fL (7.6-11.3); RBC Red Blood Cell Count 4.68 M/uL (3.86-4.86)
[2020-02-25 07:53] LABS: Protime INR 1.22
[2020-02-25 08:06] LABS: ALT/SGPT 22 U/L (12-78); AST/SGOT 18 U/L (15-37); Albumin 3.6 g/dL (3.4-5.0); Alkaline Phosphatase 80 U/L (45-117); BUN Blood Urea Nitrogen 11 mg/dL (7-18); Bicarbonate 23 mmol/L (21-32); Bilirubin Direct < 0.1 mg/dL (0-0.2); Bilirubin Total 0.2 mg/dL (0.2-1.0); Glucose Level 80 mg/dL (74-106); Magnesium 2.2 mg/dL (1.8-2.4); NT PRO-BNP 73 pg/mL (<125); Potassium 3.7 mmol/L (3.5-5.1); Protein, Total 8.4 g/dL (6.4-8.2); Sodium Level 140 mmol/L (136-145); Troponin (Emerg Dept Use Only) < 0.02 ng/mL (0.0-0.045)
--- NOTE | 2020-02-25 08:30 | EDPHYS ---
Physician Documentation [facility] Name: Devi Porter Age: 24 yrs Sex: Female : 1995 Arrival Date: 02/25/2020 Time: 06:47 Bed 20 Private MD: ED Physician Jama Cruz HPI: 02/24 07:35 This 24 yrs old Female presents to ER via Ambulatory with complaints of pm1 Fever, Chest Pain. 07:35 The patient or guardian reports chest pain that is located primarily in the mid-sternal pm1 area. The pain does not radiate. Associated signs and symptoms: Pertinent positives: Fever, Pertinent negatives: abdominal pain, cough, diaphoresis, dizziness, headache, nausea, shortness of breath, vomiting, Chills, Sore throat, Diarrhea. The chest pain is described as a pressure. Duration: The patient or guardian reports a single episode, that is still ongoing. Modifying factors: the symptoms are aggravated by deep breath, palpation of area. Severity of pain: in the emergency department the pain is unchanged. The patient has not experienced similar symptoms in the past. It is unknown whether or not the patient has recently seen a physician. Historical: - Allergies: 07:00 No Known Allergies; rr5 - Home Meds: 07:00 None [Active]; rr5 - PMHx: 07:00 None; rr5 - PSHx: 07:00 None; rr5 - Immunization history:: Adult Immunizations up to date. - Social history:: Smoking status: unknown Patient/guardian denies using alcohol, street drugs. ROS: 07:35 Neck: Negative for injury, pain, and swelling. pm1 07:35 Respiratory: Negative for shortness of breath, cough, wheezing 07:35 Abdomen/GI: Negative for abdominal pain, nausea, vomiting, diarrhea, and constipation, Back: Negative for injury and pain, MS/Extremity: Negative for injury and deformity, Skin: Negative for injury, rash, and discoloration. 07:35 Neuro: Negative for headache, weakness, numbness, tingling, and seizure. 07:35 Constitutional: Positive for fever, Negative for poor PO intake. 07:35 Cardiovascular: Positive for chest pain, Negative for edema, orthopnea, palpitations. Exam: 07:35 Constitutional: This is a well developed, well nourished patient who is awake, alert, pm1 and in no acute distress. Head/Face: Normocephalic, atraumatic. Neck: Trachea midline, no thyromegaly or masses palpated, and no cervical lymphadenopathy. Supple, full range of motion without nuchal rigidity, or vertebral point tenderness. No Meningismus. 07:35 Cardiovascular: Regular rate and rhythm with a normal S1 and S2. No gallops, murmurs, or rubs. Normal PMI, no JVD. No pulse deficits. Respiratory: Lungs have equal breath sounds bilaterally, clear to auscultation and percussion. No rales, rhonchi or wheezes noted. No increased work of breathing, no retractions or nasal flaring. Abdomen/GI: Soft, non-tender, with normal bowel sounds. No distension or tympany. No guarding or rebound. No evidence of tenderness throughout. Back: No spinal tenderness. No costovertebral tenderness. Full range of motion. Skin: Warm, dry with normal turgor. Normal color with no rashes, no lesions, and no evidence of cellulitis. MS/ Extremity: Pulses equal, no cyanosis. Neurovascular intact. Full, normal range of motion. 07:35 Chest/axilla: Inspection: normal, Palpation: tenderness, of the mid-sternal area, that totally reproduces the patient's complaints, Deep breathing elicits patients chest pain. 07:35 Neuro: Orientation: is normal, Mentation: is normal, Motor: is normal, moves all fours. Vital Signs: 06:54 BP 129 / 58; Pulse 105; Resp 20; Temp 98.9; Pulse Ox 98% ; Weight 140.61 kg; Height 5 rr5 ft. 5 in. (165.10 cm); Pain 8/10; 08:15 BP 105 / 58; Pulse 88; Resp 16; Temp 98.7; Pulse Ox 100% ; Pain 2/10; hb 06:54 Body Mass Index 51.59 (140.61 kg, 165.10 cm) rr5 MDM: 07:06 Patient medically screened. pm1 07:15 Data reviewed: vital signs. Data interpreted: Pulse oximetry: on room air is 98 %. pm1 Interpretation: normal. 08:25 Differential diagnosis: acute myocardial infarction, acute pericarditis, anxiety, chest pm1 wall pain, pneumonia, pulmonary embolus, influenza, URI. 08:28 Counseling: I had a detailed discussion with the patient and/or guardian regarding: the pm1 historical points, exam findings, and any diagnostic results supporting the discharge/admit diagnosis, lab results, radiology results, the need for outpatient follow up, to return to the emergency department if symptoms worsen or persist or if there are any questions or concerns that arise at home. 02/24 07:04 Order name: Basic Metabolic Panel; Complete Time: 08:13 pm02/24 07:04 Order name: CBC with Diff; Complete Time: 07:54 pm02/24 07:04 Order name: LFT's; Complete Time: 08:13 pm1 02/24 07:04 Order name: Magnesium; Complete Time: 08:13 pm02/24 07:04 Order name: NT PRO-BNP; Complete Time: 08:13 pm02/24 07:04 Order name: PT-INR; Complete Time: 08:13 pm02/24 07:01 Order name: EKG - Nurse/Tech; Complete Time: 07:02 mg2 02/24 07:04 Order name: Troponin (emerg Dept Use Only); Complete Time: 08:13 pm1 02/24 07:04 Order name: XRAY Chest (1 view) pm02/24 07:04 Order name: EKG; Complete Time: 07:05 pm02/24 07:04 Order name: Cardiac monitoring; Complete Time: 07:41 pm02/24 07:04 Order name: Flu; Complete Time: 08:19 pm02/24 07:04 Order name: Strep; Complete Time: 08:19 pm02/24 08:19 Order name: Throat Culture [facility] 02/24 07:04 Order name: IV Saline Lock; Complete Time: 07:42 pm02/24 07:04 Order name: Labs collected and sent; Complete Time: 07:42 pm02/24 07:04 Order name: O2 Per Protocol; Complete Time: 07:43 pm02/24 07:04 Order name: O2 Sat Monitoring; Complete Time: 07:43 pm02/24 07:12 Order name: Urine Dipstick-Ancillary (obtain specimen); Complete Time: 08:36 pm02/24 07:12 Order name: Urine Test (obtain specimen); Complete Time: 08:36 pm1 Administered Medications: No medications were administered Disposition: 19:03 Co-signature as Attending Physician, Jama Cruz MD. rn Disposition: 02/25/20 08:29 Discharged to Home. Impression: Chest pain, unspecified. - Condition is Stable. - Discharge Instructions: Nonspecific Chest Pain. - Work release form, Medication Reconciliation Form, Thank You Letter, Antibiotic Education, Prescription Opioid Use form. - Follow up: Emergency Department; When: As needed; Reason: Worsening of condition. Follow up: Private Physician; When: 2 - 3 days; Reason: Recheck today's complaints, Continuance of care, Re-evaluation by your physician. - Problem is new. - Symptoms have improved. Signatures: Dispatcher [employer] EDMS Jama Cruz MD MD rn Dung Walker, AMANDA BLEACHER PULP pm1 Lisette Campos RN RN Lam Carter RN RN [facility] Kenny Pichardo RN RN rr5 Corrections: (The following items were deleted from the chart) 08:45 08:29 02/25/2020 08:29 Discharged to Home. Impression: Chest pain, unspecified. hb Condition is Stable. Forms are Medication Reconciliation Form, Thank You Letter, Antibiotic Education, Prescription Opioid Use. Follow up: Emergency Department; When: As needed; Reason: Worsening of condition. Follow up: Private Physician; When: 2 - 3 days; Reason: Recheck today's complaints, Continuance of care, Re-evaluation by your physician. Problem is new. Symptoms have improved. pm1
--- NOTE | 2020-02-25 08:30 | ER ---
Nurse's Notes [facility] Name: Devi Porter Age: 24 yrs Sex: Female : 1995 Arrival Date: 02/25/2020 Time: 06:47 Bed 20 Private MD: Diagnosis: Chest pain, unspecified Presentation: 02/24 06:54 Chief complaint: Patient states: I have fever max of T 100.4 F started today morning rr5 and chest pain feels like there is heavy cement on my chest started yesterday. the pain is at the center, continuous non radiating. denies cough, denies SOB. Coronavirus screen: Patient denies fever greater than 100.4F, cough, shortness of breath, or difficulty breathing. Proceed with normal triage process. Ebola Screen: No symptoms or risks identified at this time. Initial Sepsis Screen: Does the patient meet any 2 criteria? No. Patient's initial sepsis screen is negative. Does the patient have a suspected source of infection? No. Patient's initial sepsis screen is negative. Risk Assessment: Do you want to hurt yourself or someone else? Patient reports no desire to harm self or others. Onset of symptoms was February 24, 2020. 06:54 Method Of Arrival: Ambulatory rr5 06:54 Acuity: NATHAN 3 rr5 Historical: - Allergies: 07:00 No Known Allergies; rr5 - Home Meds: 07:00 None [Active]; rr5 - PMHx: 07:00 None; rr5 - PSHx: 07:00 None; rr5 - Immunization history:: Adult Immunizations up to date. - Social history:: Smoking status: unknown Patient/guardian denies using alcohol, street drugs. Screenin:04 Abuse screen: Denies threats or abuse. Denies injuries from another. Nutritional mg2 screening: No deficits noted. Tuberculosis screening: No symptoms or risk factors identified. Fall Risk None identified. Assessment: 07:02 General: Appears in no apparent distress. comfortable, Behavior is calm, cooperative. mg2 Pain: Complains of pain in chest Pain does not radiate. Pain currently is 3 out of 10 on a pain scale. Quality of pain is described as heavy, Pain began gradually, 1 day ago. Is continuous. Neuro: Level of Consciousness is awake, alert, obeys commands, Oriented to person, place, time, situation. Cardiovascular: Capillary refill < 3 seconds Patient's skin is warm and dry. Respiratory: Airway is patent Respiratory effort is even, unlabored, Respiratory pattern is regular, symmetrical. GI: No signs and/or symptoms were reported involving the gastrointestinal system. : No signs and/or symptoms were reported regarding the genitourinary system. EENT: No signs and/or symptoms were reported regarding the EENT system. Derm: Skin is intact, is healthy with good turgor, Skin is pink, warm \T\ dry. normal. Musculoskeletal: Circulation, motion, and sensation intact. Capillary refill < 3 seconds. 08:00 Reassessment: Patient appears in no apparent distress at this time. Patient and/or hb family updated on plan of care and expected duration. Pain level reassessed. Patient is alert, oriented x 3, equal unlabored respirations, skin warm/dry/pink. Vital Signs: 06:54 BP 129 / 58; Pulse 105; Resp 20; Temp 98.9; Pulse Ox 98% ; Weight 140.61 kg; Height 5 rr5 ft. 5 in. (165.10 cm); Pain 8/10; 08:15 BP 105 / 58; Pulse 88; Resp 16; Temp 98.7; Pulse Ox 100% ; Pain 2/10; hb 06:54 Body Mass Index 51.59 (140.61 kg, 165.10 cm) rr5 ED Course: 06:47 Patient arrived in ED. ag3 06:53 Dung Walker NP is PHCP. pm1 06:53 Jama Cruz MD is Attending Physician. pm1 06:59 Triage completed. rr5 07:01 Arm band placed on right wrist. EKG completed in triage. Results shown to MD. rr5 07:03 Patient has correct armband on for positive identification. Bed in low position. Call rr5 light in reach. traffic monitor specialist on. Pulse ox on. NIBP on. 07:09 Lisette Campos, RN is Primary Nurse. hb 07:34 XRAY Chest (1 view) In Process Unspecified. EDMS 08:00 Patient maintains SpO2 saturation greater than 95% on room air. hb 08:44 No provider procedures requiring assistance completed. IV discontinued, intact, hb bleeding controlled, No redness/swelling at site. Pressure dressing applied. Administered Medications: No medications were administered Outcome: 08:29 Discharge ordered by . pm1 08:44 Discharged to home ambulatory. 08:44 Condition: stable 08:44 Discharge instructions given to patient, Instructed on discharge instructions, follow up and referral plans. medication usage, Demonstrated understanding of instructions, follow-up care, medications. 08:45 Patient left the ED. Signatures: Dispatcher [employer] EDMS Dung Walker NP INDOOR SPORTS CENTRE MANAGER pm1 Lisette Campos RN RN Lam Carter RN RN [facility] Jessica Nascimento 3 Kenny Pichardo RN RN rr5
[2020-02-25 08:54] VITALS: BP 105/58; TEMP 98.7; O2SAT 100
--- NOTE | 2020-02-25 09:16 | EKG ---
Test Date: 2020-02-25 Test Time: 06:58:49 Welt Maker: MG MEASUREMENT RESULTS: Intervals: Rate: 89 IN: 162 QRSD: 82 QT: 364 QTc: 442 [place]: P: 46 IN: 162 QRS: 45 T: 54 INTERPRETIVE STATEMENTS: Normal sinus rhythm Normal ECG Compared to ECG 06/28/2018 01:22:52 No significant changes Electronically Signed On 02-25-20 09:15:36 CDT by Obdulio Mcbride
--- NOTE | 2020-02-25 09:54 | RAD REPORT ---
EXAM DESCRIPTION: Nina Single View02/25/2020 7:34 am CLINICAL HISTORY: Chest pain COMPARISON: 2017 FINDINGS: The lungs appear clear of acute infiltrate. The heart is normal size IMPRESSION: No acute abnormalities displayed
== END 2020-02-25 08:45 | disposition home or self-care (01) ==
LOC: ER 06:44
DX: R07.9 Chest pain, unspecified (principal)
CPT/HCPCS: 36415; 71045; 80048; 80076; 83735; 83880; 84484; 85025; 85610; 87070; 87081; 87804; 93005; 99284

== ENCOUNTER 2021-05-17 23:48 | Emergency (ER) | payer BC ==
--- OUTSIDE RECORDS SUMMARY | 2021-05-17 23:51 | XMS REPORT | Continuity of Care Document ---
:1995 Author Organization [facility] t Address [address] [place] [address] Care Team Providers Name Role Phone Aleena Ralph Attending Clinician Problems This patient has no known problems. Allergies, Adverse Reactions, Alerts This patient has no known allergies or adverse reactions. Medications This patient has no known medications. Procedures This patient has no known procedures. 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
--- NOTE | 2021-05-18 00:35 | EDPHYS ---
Physician Documentation [facility] Name: Devi Porter Age: 25 yrs Sex: Female : 1995 Arrival Date: 05/17/2021 Time: 23:50 Bed 20 Private MD: ED Physician Filippo Eid HPI: 05/18 00:32 This 25 yrs old Female presents to ER via Ambulatory with complaints of Sore jmm Throat. 00:32 The patient presents with sore throat. jmm 00:32 Onset: The symptoms/episode began/occurred gradually, 1 day(s) ago. Modifying factors: jmm The symptoms are alleviated by nothing, the symptoms are aggravated by nothing. Associated signs and symptoms: Pertinent positives: cough. The patient has experienced similar episodes in the past. 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 - Social history:: Smoking status: Patient reports the use of cigarette tobacco products, Patient/guardian denies using alcohol, street drugs. ROS: 00:32 Constitutional: Negative for fever, chills, and weight loss. jmm 00:32 ENT: Positive for sore throat. 00:32 All other systems are negative. Exam: 00:32 Constitutional: This is a well developed, well nourished patient who is awake, alert, jmm and in no acute distress. Head/Face: atraumatic. Eyes: EOMI, no conjunctival erythema appreciated 00:32 Neck: Trachea midline, Supple Chest/axilla: Normal chest wall appearance and motion. Cardiovascular: Regular rate and rhythm. No edema appreciated Respiratory: Normal respirations, no respiratory distress appreciated Abdomen/GI: Non distended, soft Back: Normal ROM Skin: General appearance color normal MS/ Extremity: Moves all extremities, no obvious deformities appreciated, no edema noted to the lower extremities Neuro: Awake and alert, normal gait Psych: Behavior is normal, Mood is normal, Patient is cooperative and pleasant 00:32 ENT: Posterior pharynx: erythema, that is mild. Vital Signs: 05/17 23:57 BP 153 / 99; Pulse 91; Resp 19; Temp 98.7; Pulse Ox 99% ; Weight 145.15 kg; Height 5 rr5 ft. 5 in. (165.10 cm); Pain 7/10; 05/18 00:53 BP 101 / 76; Pulse 75; Resp 17; Pulse Ox 99% ; rr5 05/17 23:57 Body Mass Index 53.25 (145.15 kg, 165.10 cm) rr5 MDM: 00:16 Patient medically screened. [facility] 00:34 Data reviewed: vital signs, nurses notes. Counseling: I had a detailed discussion with [facility] the patient and/or guardian regarding: the historical points, exam findings, and any diagnostic results supporting the discharge/admit diagnosis, the need for outpatient follow up, to return to the emergency department if symptoms worsen or persist or if there are any questions or concerns that arise at home. 05/18 00:12 Order name: Strep rr5 Administered Medications: 00:20 Drug: Decadron (dexamethasone) 10 mg Route: IM; Site: left deltoid; ak2 00:53 Follow up: Response: No adverse reaction rr5 Disposition: 05:14 Co-signature as Attending Physician, Filippo Eid MD. 7 Disposition: 05/18/21 00:34 Discharged to Home. Impression: Acute pharyngitis. - Condition is Stable. - Discharge Instructions: Pharyngitis. - Prescriptions for Amoxicillin 875 mg Oral Tablet - take 1 tablet by ORAL route every 12 hours for 10 days; 20 tablet. - Medication Reconciliation Form, Thank You Letter, Antibiotic Education, Prescription Opioid Use, Work release form form. - Follow up: Private Physician; When: 2 - 3 days; Reason: Recheck today's complaints, Continuance of care, Re-evaluation by your physician. Signatures: Dispatcher [employer] EDMS Devante Landa PA PA Kenny Martell, RN RN rr5 Filippo Eid MD MD 7 H[address] Marquez mt2 Corrections: (The following items were deleted from the chart) 00:54 00:34 05/18/2021 00:34 Discharged to Home. Impression: Acute pharyngitis. Condition is rr5 Stable. Forms are Medication Reconciliation Form, Thank You Letter, Antibiotic Education, Prescription Opioid Use. Follow up: Private Physician; When: 2 - 3 days; Reason: Recheck today's complaints, Continuance of care, Re-evaluation by your physician. samantha
--- NOTE | 2021-05-18 00:35 | ER ---
Nurse's Notes [facility] Name: Devi Porter Age: 25 yrs Sex: Female : 1995 Arrival Date: 05/17/2021 Time: 23:50 Bed 20 Private MD: Diagnosis: Acute pharyngitis Presentation: 05/17 23:57 Chief complaint: Patient states: my throat is hurting, cough, shortness of breath rr5 started 2 days ago, denies fever. Coronavirus screen: Client denies travel out of the [place] in the last 14 days. cough unrelated to allergies, shortness of breath, sore throat, Client presents with at least one sign or symptom that may indicate coronavirus-19. Standard/surgical mask placed on the client. Provider contacted for isolation considerations. Ebola Screen: Patient negative for fever greater than or equal to 101.5 degrees Fahrenheit, and additional compatible Ebola Virus Disease symptoms Patient denies exposure to infectious person. Patient denies travel to an Ebola-affected area in the 21 days before illness onset. Initial Sepsis Screen: Does the patient meet any 2 criteria? No. Patient's initial sepsis screen is negative. Does the patient have a suspected source of infection? No. Patient's initial sepsis screen is negative. Risk Assessment: Do you want to hurt yourself or someone else? Patient reports no desire to harm self or others. Onset of symptoms was May 16, 2021. Care prior to arrival: Medication(s) given: amoxicillin 2 doses and vicks dayquil at 10 PM. 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 - Social history:: Smoking status: Patient reports the use of cigarette tobacco products, Patient/guardian denies using alcohol, street drugs. Screenin:53 Abuse screen: Denies threats or abuse. Denies injuries from another. Nutritional rr5 screening: No deficits noted. Tuberculosis screening: No symptoms or risk factors identified. Fall Risk None identified. Total Lima Fall Scale indicates No Risk (0-24 pts). Assessment: 00:00 General: Appears in no apparent distress. uncomfortable, Behavior is calm, cooperative, rr5 appropriate for age. Pain: Complains of pain in throat. Neuro: Level of Consciousness is awake, alert, obeys commands, Oriented to person, place, time. Cardiovascular: Capillary refill < 3 seconds Patient's skin is warm and dry. Respiratory: Airway is patent Respiratory effort is even, unlabored, Respiratory pattern is regular, symmetrical, EENT: Throat is pink with gag reflex present. Derm: Skin temperature is warm. Musculoskeletal: Capillary refill < 3 seconds. 00:51 Reassessment: Patient appears in no apparent distress at this time. Patient is alert, rr5 oriented x 3, equal unlabored respirations, skin warm/dry/pink. discharge instruction given and explained without complaints made. Vital Signs: 05/17 23:57 BP 153 / 99; Pulse 91; Resp 19; Temp 98.7; Pulse Ox 99% ; Weight 145.15 kg; Height 5 rr5 ft. 5 in. (165.10 cm); Pain 7/10; 05/18 00:53 BP 101 / 76; Pulse 75; Resp 17; Pulse Ox 99% ; rr5 05/17 23:57 Body Mass Index 53.25 (145.15 kg, 165.10 cm) rr5 ED Course: 05/17 23:50 Patient arrived in ED. cf2 23:57 Kenny Pichardo RN is Primary Nurse. rr5 05/18 00:00 Devante Landa PA is PHCP. [facility] 00:00 Filippo Eid MD is Attending Physician. [facility] 00:02 Triage completed. rr5 00:15 Patient has correct armband on for positive identification. Bed in low position. rr5 00:16 Arm band placed on right wrist. rr5 00:51 No provider procedures requiring assistance completed. Patient did not have IV access rr5 during this emergency room visit. Administered Medications: 00:20 Drug: Decadron (dexamethasone) 10 mg Route: IM; Site: left deltoid; ak2 00:53 Follow up: Response: No adverse reaction rr5 Outcome: 00:34 Discharge ordered by MD. singh 00:51 Discharged to home ambulatory, with family. rr5 00:51 Condition: stable 00:51 Discharge instructions given to patient, family, Instructed on discharge instructions, follow up and referral plans. medication usage, Demonstrated understanding of instructions, follow-up care, medications, Prescriptions given X 1. 00:54 Patient left the ED. rr5 Signatures: Devante Landa PA PA jmm Roque, Raymond RN RN rr5 Piedad Mc 2 Haja Marquez mt2
[2021-05-18] MEDS ORDERED: dexAMETHasone 10 MG/ML VIAL ONE (00:37)
[2021-05-18 01:17] VITALS: TEMP 98.7; O2SAT 99
[2021-05-18 01:19] VITALS: BP 101/76
== END 2021-05-18 00:54 | disposition home or self-care (01) ==
LOC: ER 23:48
DX: J02.9 Acute pharyngitis, unspecified (principal); Z72.0 Tobacco use
CPT/HCPCS: 87070; 87081; J1100; 96372; 99283

== ENCOUNTER 2021-05-21 14:00 | Emergency (ER) | payer BC, SELFPAY ==
--- OUTSIDE RECORDS SUMMARY | 2021-05-21 14:03 | XMS REPORT | Continuity of Care Document ---
:1995 Author Organization [facility] t Address 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
--- NOTE | 2021-05-21 16:50 | RAD REPORT ---
EXAM DESCRIPTION: Nina Matos (2 Views)05/21/2021 4:42 pm CLINICAL HISTORY: Cough COMPARISON: 2018 FINDINGS: Small calcified granuloma is unchanged. The lungs appear clear of acute infiltrate. The heart is normal size IMPRESSION: No acute abnormalities displayed
--- NOTE | 2021-05-21 17:04 | ER ---
Nurse's Notes [facility] Name: Devi Porter Age: 25 yrs Sex: Female : 1995 Arrival Date: 05/21/2021 Time: 14:05 Bed 30 Private MD: Diagnosis: Chest pain, unspecified;Cough Presentation: 05/21 14:13 Chief complaint: Patient states: i am having really bad chest pain. i was here early tw2 Wednesday morning. i was negative for strep. my nose is running. i am coughing. Coronavirus screen: cough unrelated to allergies, difficulty breathing, runny nose, Client presents with at least one sign or symptom that may indicate coronavirus-19. Standard/surgical mask placed on the client. Provider contacted for isolation considerations. Ebola Screen: Patient denies travel to an Ebola-affected area in the 21 days before illness onset. Initial Sepsis Screen: Does the patient meet any 2 criteria? No. Patient's initial sepsis screen is negative. Does the patient have a suspected source of infection? No. Patient's initial sepsis screen is negative. Risk Assessment: Do you want to hurt yourself or someone else? Patient reports no desire to harm self or others. Onset of symptoms was May 21, 2021. 14:13 Method Of Arrival: Ambulatory tw2 14:13 Acuity: NATHAN 3 tw2 Triage Assessment: 14:16 General: Appears in no apparent distress. obese, well groomed, Behavior is calm, tw2 cooperative, appropriate for age. Pain: Complains of pain in chest. EENT: Reports nasal congestion nasal discharge. Cardiovascular: Reports shortness of breath. Respiratory: Respiratory effort is even, unlabored. 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 - Social history:: Smoking status: Patient denies any tobacco usage or history of. - Family history:: not pertinent. - Hospitalizations: : No recent hospitalization is reported. Screenin:59 Abuse screen: Denies threats or abuse. Denies injuries from another. Nutritional ld1 screening: No deficits noted. Tuberculosis screening: No symptoms or risk factors identified. Fall Risk None identified. Assessment: 15:59 General: Appears in no apparent distress. comfortable, Behavior is calm, cooperative, ld1 appropriate for age. Pain: Denies pain. Neuro: Level of Consciousness is awake, alert, obeys commands, Oriented to person, place, time, situation, Appropriate for age. Cardiovascular: Capillary refill < 3 seconds Patient's skin is warm and dry. Cardiovascular: Reports Chest pressure Rhythm is regular. Respiratory: Airway is patent Respiratory effort is even, unlabored, Respiratory pattern is regular, symmetrical. Respiratory: GI: Abdomen is round non-distended. : No signs and/or symptoms were reported regarding the genitourinary system. EENT: Reports nasal discharge that is watery. Derm: No signs and/or symptoms reported regarding the dermatologic system. 16:43 Reassessment: Patient appears in no apparent distress at this time. No changes from ld1 previously documented assessment. Waiting on results with family at bedside. 17:12 Pain: Pain began. ld1 Vital Signs: 14:13 BP 119 / 82; Pulse 84; Resp 17; Temp 98.6(TE); Pulse Ox 97% on R/A; Weight 145.15 kg; tw2 Height 5 ft. 5 in. (165.10 cm); Pain 9/10; 15:59 BP 122 / 84; Pulse 82; Resp 18; Pulse Ox 100% on R/A; ld1 16:43 BP 128 / 80; Pulse 76; Resp 18; Pulse Ox 100% on R/A; ld1 14:13 Body Mass Index 53.25 (145.15 kg, 165.10 cm) tw2 ED Course: 14:05 Patient arrived in ED. mr 14:16 Triage completed. tw2 14:17 Arm band placed on. tw2 15:52 Jama Cruz MD is Attending Physician. rn 15:59 Leslye August RN is Primary Nurse. ld1 15:59 Patient has correct armband on for positive identification. Bed in low position. Call ld1 light in reach. Side rails up X 1. Pulse ox on. NIBP on. 15:59 No provider procedures requiring assistance completed. Patient maintains SpO2 ld1 saturation greater than 95% on room air. 17:12 Patient did not have IV access during this emergency room visit. ld1 Administered Medications: 17:11 Drug: TORadol (ketorolac) 30 mg Route: IM; Site: right deltoid; ld1 17:11 Follow up: Response: No adverse reaction ld1 Outcome: 17:04 Discharge ordered by . rn 17:12 Discharged to home ambulatory. ld1 17:12 Condition: stable 17:12 Discharge instructions given to patient, family, Instructed on discharge instructions, follow up and referral plans. medication usage, Demonstrated understanding of instructions, follow-up care. 17:12 Patient left the ED. ld1 Signatures: Nury Díaz Roman, MD MD rn Yvette Sawyer RN RN tw2 Leslye August RN RN ld1
--- NOTE | 2021-05-21 17:04 | EDPHYS ---
Physician Documentation [facility] Name: Devi Porter Age: 25 yrs Sex: Female : 1995 Arrival Date: 05/21/2021 Time: 14:05 Bed 30 Private MD: ED Physician Jama Curz HPI: 05/21 16:02 This 25 yrs old Female presents to ER via Ambulatory with complaints of Chest rn Pain. 16:02 The patient or guardian reports chest pain that is located primarily in the anterior rn chest wall, chest diffusely. The pain does not radiate. Associated signs and symptoms: Pertinent positives: cough, Pertinent negatives: near syncope, syncope, vomiting. The chest pain is described as sharp, stabbing. Duration: The patient or guardian reports multiple episodes, that are intermittent. Modifying factors: The symptoms are alleviated by nothing. the symptoms are aggravated by cough, deep breath. Severity of pain: At its worst the pain was mild in the emergency department the pain is unchanged. The patient has not experienced similar symptoms in the past. The patient has been recently seen by a physician:. Reports chest pain, diffuse, assoc with productive cough, for a few days, seen here and tested neg for strep, prescribed steroids and abx. Went to work today because afebrile and told to come here because coughing too much. No chronic lung problems, non-smoker, doesn't vape.. 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 - Social history:: Smoking status: Patient denies any tobacco usage or history of. - Family history:: not pertinent. - Hospitalizations: : No recent hospitalization is reported. ROS: 16:02 Constitutional: Negative for fever, chills, and weight loss, Eyes: Negative for injury, rn pain, redness, and discharge, Neck: Negative for injury, pain, and swelling, Cardiovascular: Negative for palpitations, and edema, Respiratory: Negative for shortness of breath, wheezing Abdomen/GI: Negative for abdominal pain, nausea, vomiting, diarrhea, and constipation, Back: Negative for injury and pain, MS/Extremity: Negative for injury and deformity, Skin: Negative for injury, rash, and discoloration, Neuro: Negative for headache, weakness, numbness, tingling, and seizure. Exam: 16:02 Constitutional: This is a well developed, well nourished patient who is awake, alert, rn and in no acute distress. Head/Face: Normocephalic, atraumatic. Eyes: Periorbital areas with no swelling, redness, or edema. ENT: No stridor Chest/axilla: Normal chest wall appearance and motion. Nontender with no deformity. No lesions are appreciated. Cardiovascular: Regular rate and rhythm. No pulse deficits. Respiratory: Clear bilateral breath sounds. No retractions. No increased work of breathing, no retractions or nasal flaring. Skin: Warm, dry with normal turgor. Normal color with no rashes, no lesions, and no evidence of cellulitis. MS/ Extremity: Pulses equal, no cyanosis. Neuro: Awake and alert, GCS 15 Vital Signs: 14:13 BP 119 / 82; Pulse 84; Resp 17; Temp 98.6(TE); Pulse Ox 97% on R/A; Weight 145.15 kg; tw2 Height 5 ft. 5 in. (165.10 cm); Pain 9/10; 15:59 BP 122 / 84; Pulse 82; Resp 18; Pulse Ox 100% on R/A; ld1 16:43 BP 128 / 80; Pulse 76; Resp 18; Pulse Ox 100% on R/A; ld1 14:13 Body Mass Index 53.25 (145.15 kg, 165.10 cm) tw2 MDM: 15:52 Patient medically screened. rn 17:03 Differential diagnosis: acute pericarditis, chest wall pain, costochondritis, rn pericarditis, pneumonia, pneumothorax. Data reviewed: vital signs, nurses notes, old medical records, radiologic studies, plain films, and as a result, I will discharge patient. Counseling: I had a detailed discussion with the patient and/or guardian regarding: the historical points, exam findings, and any diagnostic results supporting the discharge/admit diagnosis, radiology results, the need for outpatient follow up, to return to the emergency department if symptoms worsen or persist or if there are any questions or concerns that arise at home. Special discussion: Based on the patient's history, exam, and Dx evaluation, there is no indication for emergent intervention or inpatient Tx. It is understood by the patient/guardian that if the Sx's persist or worsen they need to return immediately for re-evaluation. I discussed with the patient/guardian in detail that at this point there is no indication for admission to the hospital. It is understood, however, that if the symptoms persist or worsen the patient needs to return immediately for re-evaluation. ED course: CXR clear of acute infiltrate, already on abx, no oxygen requirement, will dc home with OTC anti-inflammatories. . 05/21 16:02 Order name: XRAY Chest Pa And Lat (2 Views) rn 05/21 16:50 Order name: RAD; Complete Time: 17:04 EDMS Administered Medications: 17:11 Drug: TORadol (ketorolac) 30 mg Route: IM; Site: right deltoid; ld1 17:11 Follow up: Response: No adverse reaction ld1 Disposition: 05/21/21 17:04 Discharged to Home. Impression: Chest pain, unspecified, Cough. - Condition is Stable. - Discharge Instructions: Nonspecific Chest Pain, Chest Wall Pain, Cough, Adult. - Medication Reconciliation Form, Thank You Letter, Antibiotic Education, Prescription Opioid Use, Work release form form. - Follow up: Private Physician; When: As needed; Reason: Recheck today's complaints, Re-evaluation by your physician. - Problem is new. - Symptoms have improved. Signatures: Dispatcher [employer] EDMS Jama Cruz MD MD rn Wise, Tara, RN RN 2 Leslye August RN RN ld1 Corrections: (The following items were deleted from the chart) 17:12 17:04 05/21/2021 17:04 Discharged to Home. Impression: Chest pain, unspecified; Cough. ld1 Condition is Stable. Forms are Medication Reconciliation Form, Thank You Letter, Antibiotic Education, Prescription Opioid Use. Follow up: Private Physician; When: As needed; Reason: Recheck today's complaints, Re-evaluation by your physician. Problem is new. Symptoms have improved. rn
[2021-05-21] MEDS ORDERED: KETOROLAC 30 MG/ML INJ ONE (17:29)
[2021-05-21 17:54] VITALS: O2SAT 100
[2021-05-21 17:55] VITALS: BP 128/80
[2021-05-21 17:58] VITALS: TEMP 98.6
== END 2021-05-21 17:12 | disposition home or self-care (01) ==
LOC: ER 14:00
DX: R05 Cough (principal)
CPT/HCPCS: 71046; 96372; 99284

== ENCOUNTER 2024-11-16 08:00 | Emergency (ER) | payer MEDICARE, SELFPAY ==
--- OUTSIDE RECORDS SUMMARY | 2024-11-16 08:03 | XMS REPORT | Continuity of Care Document ---
Author Name Unknown Address [address] [facility] [address] [place] [address] [facility] thconnect Address [address] [facility] [place] [address] Care Team Providers Care Title Search Manager Name Role Phone Sierra Ralph Primary Care Physician [phone] Sarah Lara Attending Clinician Sierra Ralph Attending Clinician Doctor Unassigned, [place] Attending Clinician U navailable Payers Payer Name Policy Type Policy Number Effective Date Expirati on Date Source Problems Condition Name Condition Details Condition Category Status Onset Date Resolution Date Last Treatment Date Treating Clinician Comments Source Need for varicella vaccine Need for varicella vaccine Disease Active 05-25 00:00: 00 [facility] Need for varicella vaccine Need for varicella vaccine Disease Active 05-25 00:00: 00 [facility] Nexplanon in place Nexplanon in place Disease Active 05-25 00:00: 00 Overview: Removal date 05/25/21 [facility] Dysmenorrh ea Dysmenorrh ea Disease Active 02-13 00:00: 00 [facility] Morbid obesity Morbid obesity Disease Active 06-19 00:00: 00 Overview: ICD10 Diagnosis Term [employer] [facility] Contracept emmy management Contracept emmy management Disease Resolve d 02-13 00:00: 00 2018-05-24 00:00:00 2018-05-24 08:04:01 [facility] Depot contracept ion Depot contracept ion Disease Resolve d 3-18 00:00: 00 2018-05-24 00:00:00 2018-05-24 08:04:03 [facility] Social History Social Habit Start Date Stop Date Quantity Comments [facility] function 2020-07-04 00:00:00 2020-07-04 00:00:00 [facility] Alcoholic beverage intake 2019-07-11 00:00:00 2019-07-11 00:00:00 0 /d [facility] Alcohol intake 2019-07-11 00:00:00 2019-07-11 00:00:00 Current non-drinker of alcohol (finding) [facility] Tobacco use and exposure 2016-05-14 00:00:00 2016-05-14 00:00:00 Smokeless tobacco non-user [facility] Sex assigned at 1995 00:00:00 1995 00:00:00 [facility] Smoking Status Start Date Stop Date Source Never smoked tobacco [facility] Medications Ordered Medication Name Filled Medication Name Start Date Stop Date Current Medication? Ordering Clinician Indication Dosage Frequency Signature (SIG) Comments Components Source norgestimat e-ethinyl estradiol (FEMYNOR) 0.25-35 mg-mcg per tablet 05-24 13:06: 18 Yes 1{tbl} Take 1 tablet by mouth daily. [facility] norgestimat e-ethinyl estradiol (FEMYNOR) 0.25-35 mg-mcg per tablet 05-24 08:06: 18 Yes 1{tbl} Take 1 tablet by mouth daily. [facility] Immunizations Ordered Immunization Name Filled Immunization Name Date Status Comments Source HPV9 2018-05-24 00:00:00 Completed [facility] HPV9 2018-05-24 00:00:00 Completed [facility] HPV9 2018-05-24 00:00:00 Completed [facility] HPV9 2018-05-24 00:00:00 Completed [facility] TDAP (ADACEL) VACCINE 2012-06-29 00:00:00 Completed [facility] TDAP (ADACEL) VACCINE 2012-06-29 00:00:00 Completed [facility] TDAP (ADACEL) VACCINE 2012-06-29 00:00:00 Completed [facility] TDAP (ADACEL) VACCINE 2012-06-29 00:00:00 Completed [facility] Vital Signs Vital Name Observation Time Observation Value Rinku rivera Systolic blood pressure 2019-07-11 13:22:00 121 mm[Hg] [facility] Diastolic blood pressure 2019-07-11 13:22:00 84 mm[Hg] [facility] Heart rate 2019-07-11 13:22:00 81 /min [facility] Body temperature 2019-07-11 13:22:00 36.78 Mary [facility] Respiratory rate 2019-07-11 13:22:00 16 /min [facility] Body height 2019-07-11 13:22:00 165.1 cm [facility] Body weight 2019-07-11 13:22:00 134.888 kg [facility] BMI 2019-07-11 13:22:00 49.49 kg/m2 [facility] Systolic blood pressure 2019-07-11 13:22:00 121 mm[Hg] [facility] Diastolic blood pressure 2019-07-11 13:22:00 84 mm[Hg] [facility] Heart rate 2019-07-11 13:22:00 81 /min Un[facility] Body temperature 2019-07-11 13:22:00 36.78 Mary [facility] Respiratory rate 2019-07-11 13:22:00 16 /min [facility] Body height 2019-07-11 13:22:00 165.1 cm [facility] Body weight 2019-07-11 13:22:00 134.888 kg [facility] BMI 2019-07-11 13:22:00 49.49 kg/m2 [facility] Procedures Procedure Date / Time Performed Performing Clinicia n Source ASSIGNMENT OF BENEFITS 2019-07-11 13:00:08 Docto r Unassigned, [place] [facility] Encounters Start Date/Time End Date/Time Encounter Type Admission Type Attending Clinicians Care Facility Care Department Encounter ID Source 2024-11-07 00:00:00 2024-11-07 08:24:54 Letter (Out) Sarah Lara [facility] [id number] [facility] 2024-02-17 11:38:50 2024-02-17 11:38:50 Outpatient SFA SFA [id number] Junaid Vernon 2023-06-29 13:17:56 2023-06-29 13:17:56 Outpatient SFA [id number] [id number] Junaid White Saulo 2023-06-15 13:14:49 2023-06-15 13:14:49 Outpatient SFA SFA [id number] Junaid Vernon 2023-01-08 14:13:12 2023-01-08 14:13:12 Outpatient SFA [facility] [id number] Junaid Vernon 2021-04-15 00:00:00 2021-04-15 00:00:00 Telephone Sierra Edmond [facility] PHYSICIAN [facility] [id number] [facility] 2021-04-15 00:00:00 2021-04-15 00:00:00 Telephone Sierra Edmond [facility]IC[facility] PHYSICIAN [facility] [id number] 2019-07-11 08:05:47 2019-07-11 08:44:23 Office Visit Sierra Edmond [facility]IC[facility] PHYSICIAN [facility] [id number] [facility] 2019-07-11 08:05:47 2019-07-11 08:44:23 Office Visit Sierra Edmond [facility]IC[facility] PHYSICIAN [facility] [id number] 2019-07-11 00:00:00 2019-07-11 00:00:00 Orders Only Doctor Unassigned, [place] [facility] [id number] [facility]
[2024-11-16] MEDS ORDERED: KETOROLAC 30 MG/ML INJ ONE (08:31)
[2024-11-16] MEDS ORDERED: ONDANSETRON 4 MG/2 ML VIAL ONE (08:31)
[2024-11-16] MEDS ORDERED: NA CHLORIDE 0.9% 1,000 ML ONE (08:31)
[2024-11-16 09:00] LABS: Absolute Lymphocytes (CBC) 1.7 K/uL (0.7-4.9); Absolute Monocytes 0.5 K/uL (0.1-1.3); Absolute Neutrophil 8.8 K/uL (1.8-8.0); Basophils % 0.4 % (0-1.3); Eosinophils % 0.2 % (0-4.4); Hematocrit 38.2 % (36.0-45.0); Hemoglobin 11.9 g/dL (12.0-15.0); Lymphocytes % 15.4 % (15.3-44.8); MCH 26.1 pg (27.0-35.0); MCHC 31.3 g/dL (32.0-36.0); MCV 83.5 fL (80-100); MPV 9.5 fL (7.6-11.3); Monocytes % 4.3 % (3.3-12.3); Neutrophils % 79.7 % (41.7-73.7); Nucleated Red Blood Cells % 0.1 % (0-0); Platelets 307 thou/uL (152-406); RBC Red Blood Cell Count 4.57 M/uL (3.86-4.86); Red Cell Distribution Width 14.9 % (12.1-15.2)
[2024-11-16 09:40] LABS: Albumin 3.6 g/dL (3.4-5.0); Albumin/Globulin Ratio 0.9 (1.1-1.8); Anion Gap 6.9 mEq/L (5.0-15.0); Bilirubin Total 0.2 mg/dL (0.2-1.0); Potassium 3.9 mEq/L (3.5-5.1); Protein, Total 7.6 g/dL (6.4-8.2)
[2024-11-16] MEDS ORDERED: FAMOTIDINE 20 MG/2 ML VIAL IV ONE (10:07)
[2024-11-16] MEDS ORDERED: NA CHLORIDE 0.9% 50 ML ONE (10:07)
[2024-11-16] MEDS ORDERED: MORPHINE 2 MG/ML SYR ONE (10:07)
[2024-11-16] MEDS ORDERED: METOCLOPRAMIDE 10 MG/2mL INJ ONE (10:07)
[2024-11-16 10:20] LABS: Specific Gravity 1.026 (1.005-1.030); Sqamous Epithelial <5 /HPF (None Seen); Urine Bacteria None Seen /HPF (<20); Urine Bilirubin NEGATIVE (Negative); Urine Blood Negative (Negative); Urine Clarity Clear (Clear); Urine Color Light-Yellow (Yellow); Urine Culture Reflex Order NOT NEEDED; Urine Glucose NEGATIVE (Negative); Urine Ketones TRACE (Negative); Urine Microscopic Reflex YN ORDER UMIC; Urine Mucus Slight /HPF (None Seen); Urine Nitrite NEGATIVE (Negative); Urine Protein TRACE (Negative); Urine RBC <5 /HPF (None Seen); Urine Urobilinogen Normal (Normal); Urine WBC <5 /HPF (<5); Urine pH 8.5 (5.0-7.0)
--- NOTE | 2024-11-16 10:44 | EDPHYS ---
Physician Documentation [facility] Name: Devi Porter Age: 28 yrs Sex: Female : 1995 Arrival Date: 11/16/2024 Time: 08:00 Bed 5 Private MD: ED Physician Nabil Hurd HPI: 11/16 08:23 This 28 yrs old Female presents to ER via Ambulatory with complaints of ec2 Stomach pain. 08:23 Patient arrives today for evaluation of abdominal discomfort. States that she "over ate ec2 ", states that she had more [employer] than she typically would. Patient reports some nausea and vomiting. Patient reports upper abdominal discomfort as well. No alcohol use, no substance abuse.. 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 - Infectious Disease History:: Denies. - Social history:: Smoking status: Patient denies any tobacco usage or history of. ROS: 08:24 Constitutional: as per hpi ec2 Exam: 08:24 Constitutional: GEN: NAD Head: atraumatic Eyes: EOMI Ears: External ears are ec2 normal. CV: regular rate LUNGS: no respiratory distress ABD: non-distended, soft, tender in epigastrium, not guarding, not rigid SKIN: no evidence of rashes MSK: no evidence of trauma Vital Signs: 08:15 BP 119 / 74; Pulse 88; Resp 20; Temp 98.2(O); Pulse Ox 100% on R/A; Weight 136.08 kg; hb Height 5 ft. 5 in. ; Pain 10/10; 08:20 BP 120 / 71; Pulse 48; Resp 18; Pulse Ox 97% on R/A; db 09:06 Pulse 61; Pulse Ox 94% ; ll1 09:21 Pulse 63; Resp 17; Pulse Ox 100% on R/A; ll1 10:50 BP 117 / 71; Pulse 61; Resp 16; Pulse Ox 100% on R/A; ll1 08:15 Body Mass Index 49.92 (136.08 kg, 165.1 cm) hb 08:15 Pain Scale: Adult hb MDM: 08:23 Medical Screening Exam initiated ec2 08:24 Data reviewed: vital signs, nurses notes. ED course: Patient arrives today for ec2 abdominal discomfort along with nausea and vomiting. Examination is revealing for nontoxic individual who has upper abdominal findings as above. Will obtain lab work, urine studies, treat the patient symptoms. Differential includes gastroenteritis, gastritis, pancreatitis, gallbladder pathology.. 10:21 ED course: Urine nonactionable, suspect gastroenteritis along with associated abdominal ec2 wall pain given frequent vomiting. Will discharge home. Return precautions given.. 11/16 08:23 Order name: CBC with Diff; Complete Time: 09:15 ec2 11/16 08:23 Order name: CMP; Complete Time: 09:49 ec2 11/16 08:23 Order name: Lipase; Complete Time: 09:49 ec2 11/16 08:23 Order name: Test, Urine; Complete Time: 10:21 ec2 11/16 08:23 Order name: Urinalysis w/ reflexes; Complete Time: 10:21 ec2 11/16 08:23 Order name: IV Saline Lock; Complete Time: 08:25 ec2 11/16 08:23 Order name: Labs collected and sent; Complete Time: 08:25 ec2 Administered Medications: 08:43 Drug: NS 0.9% IV 1000 ml IV at 1 bolus Per protocol; to be given as a bolus over 60 db minutes Route: IV; Rate: 1 bolus; Site: left antecubital; 09:58 Follow up: Response: No adverse reaction; IV Status: Completed infusion; IV Intake: ll1 1000ml 08:44 Drug: TORadol - Ketorolac IVP 15 mg IVP once Route: IVP; Site: left antecubital; db 09:21 Follow up: Response: No adverse reaction; Pain is decreased ll1 08:44 Drug: Ondansetron IVP 4 mg IVP once; over 2 minutes Route: IVP; Site: left antecubital; db 09:21 Follow up: Response: No adverse reaction ll1 10:14 Drug: morphine IVP or IV 2 mg IVP once over 4 mins {Note: pain 9/10 RASS 0.} Route: ll1 IVP; Infused Over: 4 mins; Site: left antecubital; 10:57 Follow up: Response: No adverse reaction; Pain is decreased; RASS: Alert and Calm (0) ll1 10:14 Drug: metoCLOPramide IVP 10 mg IVP once; over 1 to 2 minutes Route: IVP; Site: left ll1 antecubital; 10:57 Follow up: Response: No adverse reaction; Nausea is decreased ll1 10:15 Drug: Famotidine IVP 20 mg IVP once; dilute with 10 mL 0.9% NaCl; give over 2 minutes ll1 Route: IVP; Site: left antecubital; 10:57 Follow up: Response: No adverse reaction ll1 Disposition Summary: 11/16/24 10:43 Discharge Ordered Notes: Location: Home ec2 Condition: Stable ec2 Diagnosis - Upper abdominal pain, unspecified ec2 - Noninfective gastroenteritis and colitis, unspecified ec2 - Overeating ec2 Followup: ec2 - With: Private Physician - When: - Reason: Re-evaluation by your physician Discharge Instructions: - Discharge Summary Sheet ec2 - Gastritis, Adult, [id number] ec2 Forms: - Medication Reconciliation Form ec2 - Antibiotic Education ec2 - Prescription Opioid Use ec2 - Patient Portal Instructions ec2 - Leadership Thank You Letter ec2 Prescriptions: - Pepcid 20 mg Oral Tablet - take 1 tablet ORAL route once daily; 20 tablet; Refills: 0, Product Selection ec2 Permitted Signatures: Dispatcher [employer] Lisette Jaffe RN RN hb Lewis, Lynsay RN RN 1 Brenda Vasquez RN RN db Corral, Edwin, MD MD ec2
--- NOTE | 2024-11-16 10:44 | ER ---
Nurse's Notes [facility] Name: Devi Porter Age: 28 yrs Sex: Female : 1995 Arrival Date: 11/16/2024 Time: 08:00 Bed 5 Private MD: Diagnosis: Upper abdominal pain, unspecified;Noninfective gastroenteritis and colitis, unspecified;Overeating Presentation: 11/16 08:15 Chief complaint: Patient states: "I overate yesterday so I made myself throw up, it hb usually helps but I have been having pain and vomiting ever since 3 am.". Coronavirus screen: At this time, the client does not indicate any symptoms associated with coronavirus-19. Ebola Screen: No symptoms or risks identified at this time. Initial Sepsis Screen: Does the patient meet any 2 criteria? No. Patient's initial sepsis screen is negative. Does the patient have a suspected source of infection? No. Patient's initial sepsis screen is negative. Risk Assessment: Do you want to hurt yourself or someone else? Patient reports no desire to harm self or others. Onset of symptoms was November 16, 2024 at 03:00. 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 - Infectious Disease History:: Denies. - Social history:: Smoking status: Patient denies any tobacco usage or history of. Screenin:48 [facility] ED Fall Risk Assessment (Adult) History of falling in the last 3 months, db including since admission No falls in past 3 months (0 pts) Confusion or Disorientation No (0 pts) Intoxicated or Sedated No (0 pts) Impaired Gait No (0 pts) Mobility Assist Device Used No (0 pt) Altered Elimination No (0 pt) Score/Fall Risk Level 0 - 2 = Low Risk Oriented to surroundings, Maintained a safe environment. Abuse screen: Denies threats or abuse. Denies injuries from another. Nutritional screening: No deficits noted. Tuberculosis screening: No symptoms or risk factors identified. Assessment: 08:40 Reassessment: Patient appears in no apparent distress at this time. Patient and/or db family updated on plan of care and expected duration. Pain level reassessed. Patient is alert, oriented x 3, equal unlabored respirations, skin warm/dry/pink. General: Appears in no apparent distress. uncomfortable, Behavior is calm, cooperative. Pain: Complains of pain in back and abdomen. Neuro: Level of Consciousness is awake, alert, obeys commands, Oriented to person, place, time, situation. Respiratory: Airway is patent Respiratory effort is even, unlabored, Respiratory pattern is regular, symmetrical. GI: Abdomen is non-distended, noted to have ascites, Reports lower abdominal pain, nausea. 09:21 Reassessment: No changes from previously documented assessment. Patient and/or family ll1 updated on plan of care and expected duration. Pain level reassessed. Patient is alert, oriented x 3, equal unlabored respirations, skin warm/dry/pink. Patient states feeling better. 10:50 Reassessment: No changes from previously documented assessment. Patient and/or family ll1 updated on plan of care and expected duration. Pain level reassessed. Patient is alert, oriented x 3, equal unlabored respirations, skin warm/dry/pink. Patient states feeling better. Vital Signs: 08:15 BP 119 / 74; Pulse 88; Resp 20; Temp 98.2(O); Pulse Ox 100% on R/A; Weight 136.08 kg; hb Height 5 ft. 5 in. ; Pain 10/10; 08:20 BP 120 / 71; Pulse 48; Resp 18; Pulse Ox 97% on R/A; db 09:06 Pulse 61; Pulse Ox 94% ; ll1 09:21 Pulse 63; Resp 17; Pulse Ox 100% on R/A; ll1 10:50 BP 117 / 71; Pulse 61; Resp 16; Pulse Ox 100% on R/A; ll1 08:15 Body Mass Index 49.92 (136.08 kg, 165.1 cm) hb 08:15 Pain Scale: Adult hb ED Course: 08:03 Patient arrived in ED. ra3 08:10 Quincy Reyes, RN is Primary Nurse. ll1 08:17 Triage completed. hb 08:17 Arm band placed on. hb 08:20 Nabil Hurd MD is Attending Physician. ec2 08:25 Missed attempt(s): 22 gauge in right forearm. Bleeding controlled, band aid applied, hb catheter tip intact. 08:32 Initial lab(s) drawn, by me, sent to lab. hb 08:40 Provided Education on: ER procedures and process. ll1 08:42 Inserted saline lock: 22 gauge in left antecubital area, using aseptic technique. db Flushed with 10 mL NS. 08:48 Patient has correct armband on for positive identification. Bed in low position. Call db light in reach. Side rails up X 1. Pulse ox on. NIBP on. Pillow given. 10:05 Test, Urine Sent. hb 10:05 Urinalysis w/ reflexes Sent. hb 10:52 No provider procedures requiring assistance completed. IV discontinued, intact, ll1 bleeding controlled, No redness/swelling at site. Pressure dressing applied. Administered Medications: 08:43 Drug: NS 0.9% IV 1000 ml IV at 1 bolus Per protocol; to be given as a bolus over 60 db minutes Route: IV; Rate: 1 bolus; Site: left antecubital; 09:58 Follow up: Response: No adverse reaction; IV Status: Completed infusion; IV Intake: ll1 1000ml 08:44 Drug: TORadol - Ketorolac IVP 15 mg IVP once Route: IVP; Site: left antecubital; db 09:21 Follow up: Response: No adverse reaction; Pain is decreased ll1 08:44 Drug: Ondansetron IVP 4 mg IVP once; over 2 minutes Route: IVP; Site: left antecubital; db 09:21 Follow up: Response: No adverse reaction ll1 10:14 Drug: morphine IVP or IV 2 mg IVP once over 4 mins {Note: pain 9/10 RASS 0.} Route: ll1 IVP; Infused Over: 4 mins; Site: left antecubital; 10:57 Follow up: Response: No adverse reaction; Pain is decreased; RASS: Alert and Calm (0) ll1 10:14 Drug: metoCLOPramide IVP 10 mg IVP once; over 1 to 2 minutes Route: IVP; Site: left ll1 antecubital; 10:57 Follow up: Response: No adverse reaction; Nausea is decreased ll1 10:15 Drug: Famotidine IVP 20 mg IVP once; dilute with 10 mL 0.9% NaCl; give over 2 minutes ll1 Route: IVP; Site: left antecubital; 10:57 Follow up: Response: No adverse reaction ll1 Medication: 08:48 VIS not applicable for this client. db Intake: 09:58 IV: 1000ml; Total: 1000ml. ll1 Outcome: 10:43 Discharge ordered by . ec2 10:53 Patient left the ED. ll1 10:53 Discharged to home via wheelchair, ll1 10:53 Condition: stable 10:53 Discharge instructions given to patient, family, Instructed on discharge instructions, follow up and referral plans. medication usage, Demonstrated understanding of instructions, follow-up care, medications, Prescriptions given X 1, Signatures: Lisette Campos RN OBED Quincy Reyes RN RN ll1 Brenda Vasquez RN RN Nabil Beltran MD MD ec2 Karen Smith ra3 Corrections: (The following items were deleted from the chart) 08:49 08:15 BP 120 / 71; Pulse 48bpm; Resp 18bpm; Pulse Ox 97% RA; db db
[2024-11-16 11:14] VITALS: TEMP 98.2
[2024-11-16 11:20] VITALS: BP 120/71
[2024-11-16 11:27] VITALS: O2SAT 100
== END 2024-11-16 10:53 | disposition home or self-care (01) ==
LOC: ER 08:00
DX: K52.9 Noninfective gastroenteritis and colitis, unspecified (principal); R63.2 Polyphagia
CPT/HCPCS: 36415; 80053; 81001; 81025; 83690; 85025; 96361; 96374; 96375; 99284; J2270; J2405; J2765; J7030